=== PATIENT | female | born 1955 | race American Indian/Alaskan Native ===

== ENCOUNTER 2016-03-31 20:32 | Emergency (ER) | payer SELFPAY | END 2016-03-31 21:05 | disposition left against medical advice (07) | LOC: ED 20:32 | DX: R10.9 Unspecified abdominal pain (principal); Z53.21 Procedure and treatment not carried out due to patient leaving prior to being seen by health care provider ==

== ENCOUNTER 2016-04-01 08:37 | Emergency (ER) | payer SELFPAY ==
--- NOTE | 2016-04-01 21:38 | Emergency Department Report ---
HPI - General Chief Complaint: Abdominal Pain Time Seen by Provider: 04/01/16 21:12 - HPI HPI: This is a 61-year-old female who presents to the emergency department with a one-week history of generalized abdominal pain that she describes as a burning sensation. She denies any nausea, vomiting, problems with bowel or bladder, fever, back pain, dysuria, vaginal bleeding or discharge. She has a past medical history of hypertension. She does not currently have a primary care doctor. She has not taken anything for symptoms prior to presentation. Patient says she was here in December of this year and diagnosed with some type of colon infection, which I found to be colitis in her records, but she says that she was unable to afford follow-up and/or treatment and now this pain feels similar. No recent travel or sick contacts at home. ED Past Medical Hx - Past Medical History Hx Hypertension: Yes - Surgical History Hx Cholecystectomy: Yes Hx Appendectomy: Yes - Social History Smoking Status: Current Some Day Smoker Substance Use Type: Alcohol - Medications Home Medications: Home Medications Medication Instructions Recorded Confirmed Last Taken Type Flexeril 10 MG TAB 1 tab PO TID PRN 11/27/15 12/25/15 Unknown History Ventolin HFA 2 puff IH QID PRN 11/27/15 12/25/15 Unknown History amLODIPine 5 mg PO DAILY 11/27/15 12/25/15 Unknown History Ciprofloxacin HCl [Ciprofloxacin 500 mg PO Q12H #20 tab 12/25/15 Unknown Rx TAB] Promethazine [Phenergan TAB] 25 mg PO Q6HR PRN #14 tab 12/25/15 Unknown Rx Tramadol HCl 50 mg PO Q4H PRN #20 12/25/15 Unknown Rx metroNIDAZOLE [Flagyl] 500 mg PO Q8HR #30 tablet 12/25/15 Unknown Rx HYDROcodone/APAP 5-325 [[place] 1 each PO Q6HR PRN #12 tablet 04/02/16 Unknown Rx 5/325] ED Review of Systems ROS: Stated complaint: STOMACH ISSUES Other details as noted in HPI Comment: All other systems reviewed and negative Constitutional: denies: chills, fever Eyes: denies: eye pain, eye discharge, vision change ENT: denies: ear pain, throat pain Respiratory: denies: cough, shortness of breath, wheezing Cardiovascular: denies: chest pain, palpitations Gastrointestinal: abdominal pain. denies: nausea, vomiting Genitourinary: denies: urgency, dysuria, discharge Musculoskeletal: denies: back pain, joint swelling, arthralgia Skin: denies: rash, lesions Neurological: denies: headache, weakness, paresthesias Physical Exam - Physical Exam Vital Signs: Vital Signs 04/01/16 08:43 Temperature 97.9 F Pulse Rate 78 Respiratory 16 Rate Blood Pressure 158/100 O2 Sat by Pulse 99 Oximetry Physical Exam: GENERAL: The patient is well-developed well-nourished. HEENT: Normocephalic. Atraumatic. Extraocular motions are intact. Patient has moist mucous membranes. Pupils equal reactive to light bilaterally. NECK: Supple. Trachea is midline. CHEST/LUNGS: Clear to auscultation. There is no respiratory distress noted. HEART/CARDIOVASCULAR: Regular. There is no tachycardia. There is no gallop rub or murmur. ABDOMEN: Abdomen is soft. Generalized tenderness to palpation of the abdomen. No guarding or rebound tenderness. No peritoneal signs. Patient has normal bowel sounds. There is no abdominal distention. SKIN: There is no rash. There is no edema. There is no diaphoresis. NEURO: The patient is awake, alert, and oriented. The patient is cooperative. The patient has no focal neurologic deficits. The patient has normal speech and gait. MUSCULOSKELETAL: There is no tenderness or deformity. There is no limitation range of motion. There is no evidence of acute injury. ED Course Vital Signs 04/01/16 08:43 Temperature 97.9 F Pulse Rate 78 Respiratory 16 Rate Blood Pressure 158/100 O2 Sat by Pulse 99 Oximetry ED Medical Decision Making - Lab Data Result diagrams: 04/01/16 22:16 04/01/16 22:16 - Radiology Data Radiology results: report reviewed, image reviewed interpreted by me: Abdominal x-ray shows some moderate to large amounts of nonspecific bowel gas CT of the abdomen and pelvis with IV contrast is a normal examination and does not show any signs of urinary or intestinal obstruction any acute process. - Medical Decision Making 61-year-old female presents with one-week history of abdominal pain that is worse in the lower regions. She feels like it is consistent with her previous visit for colitis. Patient's vital signs stable throughout her ED course. Patient's labs unremarkable. Abdominal x-ray shows a large amount of nonspecific bowel gas. It appeared slightly abnormal on x-ray so a CT of the abdomen pelvis with IV contrast was done that came back as read by radiology as a normal examination. Patient was given a dose of Percocet and upon reevaluation she is feeling better. She'll be discharged home with a small amount of pain medication, and referrals for both primary care and gastroenterology. She will return to the ER with any worsening of her symptoms or any acute distress. - Differential Diagnosis colitis, gastroenteritis, diverticulitis, food poisoning Critical Care Time: No Critical care attestation.: If time is entered above; I have spent that time in minutes in the direct care of this critically ill patient, excluding procedure time. ED Disposition Clinical Impression: Abdominal pain Qualifiers: Abdominal location: generalized Qualified Code(s): R10.84 - Generalized abdominal pain Hypertension Qualifiers: Hypertension type: essential hypertension Qualified Code(s): I10 - Essential ( primary) hypertension Disposition: DISCHARGED TO HOME OR SELFCARE Is pt being admited?: No Does the pt Need Aspirin: No Condition: Stable Instructions: Abdominal Pain (ED), Hypertension (ED) Additional Instructions: Please follow-up with a primary care doctor in the next few days. I have also given you a referral for a local animal husbandry manager, Dr. West, to follow up regarding your abdominal discomfort. Return to the emergency department with any worsening of your symptoms or any acute distress. You've been prescribed a medication that is sedating. Therefore this medication cannot be mixed with alcohol, or taken prior to driving, working, or being responsible for children. Prescriptions: HYDROcodone/APAP 5-325 [[place] 5/325] 1 each PO Q6HR PRN #12 tablet PRN Reason: Pain Referrals: MADYSON FALCON MD [Primary Care Provider] - 3-5 Days KUNAL WEST MD [Staff Physician] - 3-5 Days [facility] [Outside] - 3-5 Days [facility] [Outside] - 3-5 Days [facility] [place] [Outside] - 3-5 Days Time of Disposition: 03:07
[2016-04-01 22:32] LABS: Basophils % (Auto) 0.9 % (0.0-1.8); Eosinophils % (Auto) 2.5 % (0.0-4.3); Hematocrit 39.3 % (30.3-42.9); Hemoglobin 12.9 gm/dl (10.1-14.3); Mean Corpuscular HGB Conc 33 % (30-34); Mean Corpuscular Hemoglobin 28 pg (28-32); Mean Corpuscular Volume 85 fl (79-97); Platelet Count 166 K/mm3 (140-440); Red Blood Count 4.61 M/mm3 (3.65-5.03); Red Cell Distribution Width 13.4 % (13.2-15.2)
[2016-04-01] MEDS ORDERED: PERCOCET 5/325 PO ONE (22:44)
[2016-04-01 22:54] LABS: Alanine Aminotransferase 28 units/L (7-56); Albumin 3.9 g/dL (3.9-5); Albumin/Globulin Ratio 1.1 %; Alkaline Phosphatase 79 units/L (35-129); Anion Gap 18 mmol/L; BUN/Creatinine Ratio 12.22; Bilirubin,Total < 0.2 mg/dL (0.1-1.2); Blood Urea Nitrogen 11 mg/dL (7-17); Carbon Dioxide 26 mmol/L (22-30); Chloride 101.6 mmol/L (98-107); Glucose 101 mg/dL (65-100); Lipase 43 units/L (13-60); Potassium 4.1 mmol/L (3.6-5.0); Sodium 141 mmol/L (137-145); Total Protein 7.3 g/dL (6.3-8.2)
[2016-04-02] MEDS ORDERED: NACL ONE (00:15)
[2016-04-02 00:31] LABS: Bilirubin,Urine NEG (Negative); Blood,Urine NEG (Negative); Ketones,Urine NEG (Negative); Leukocyte Esterase,Urine NEG (Negative); Mucus,Urine FEW /HPF; Nitrite,Urine NEG (Negative); Protein,Urine <15 mg/dL mg/dL (Negative); Urobilinogen,Urine < 2.0 mg/dL (<2.0)
--- NOTE | 2016-04-02 01:22 | Admit Criteria Form ---
Admission Criteria Documentation: ABDOMINAL PAIN: OBSERVATION CARE USE THIS FORM ONLY WHEN INPATIENT ADMISSION CRITERIA ARE NOT MET. (Place X for any and all applicable criteria): Placement for observation care is indicated for a patient with ANY ONE of the following(1)(2)(3)(4)(5))(6): []I. Suspected condition requiring continued monitoring (e.g., ectopic , appendicitis) [A] []II. Undiagnosed pain after evaluation and initial treatment with ANY ONE of the following: []a) Continued pain unrelieved by symptomatic treatment []b) Patient unable to maintain hydration status []c) Concerning finding on examination (e.g., increasing tenderness, focal abdominal finding) or diagnostic testing (e.g., air fluid level on x-ray) []III. A child whose situation includes ANY ONE of the following: []a) Clinical response to outpatient therapy uncertain []b) Outpatient supervision by parents or caregivers uncertain [X]IV. Other observation care needs. (Also use General Criteria: Observation Care). The original [email or web address] content created by [email or web address] has been revised. The portions of the content which have been revised are identified through the use of italic text, and [facility] has neither reviewed nor approved the modified material. All other unmodified content is copyright [facility] [email or web address]. Please see references footnoted in the original [facility] edition 2015 Admission Criteria Met: Pending
--- NOTE | 2016-04-02 02:57 | Cat Scan Report ---
FINAL REPORT EXAM: CT ABDOMEN PELVIS W CON HISTORY: abd pain TECHNIQUE: Spiral CT scanning of the abdomen and pelvis after the uneventful administration of IV contrast. Multiplanar reformations. 100 mL Omnipaque IV. PRIORS: 25 December 2015. FINDINGS: Abdomen: Visualized lung bases grossly unremarkable. Gallbladder surgically absent with biliary duct prominence probably postsurgical. Liver without significant abnormality. Spleen without significant abnormality. Pancreas without significant abnormality. Kidneys without significant abnormality. Adrenal glands without significant abnormality. Pelvis: Bowel grossly unremarkable, with mild diverticular change in the ascending colon. Appendix is not confidently identified. No significant free peritoneal fluid or apparent adenopathy. Abdominal aorta non-aneurysmal. Degenerative changes in thoracolumbar spine. IMPRESSION: 1. No acute findings.
[2016-04-02 05:24] VITALS: BP 151/87
--- NOTE | 2016-04-02 08:53 | XRay Report ---
ABDOMEN RADIOGRAPHS INDICATION: Abdominal pain. COMPARISON: 12/25/2015 CT. FINDINGS: Supine and upright abdominal radiographs demonstrate nonobstructive bowel gas pattern. Mild ascending colon stool. Stable cholecystectomy clips. No focal suspicious calcifications, pneumatosis or pneumoperitoneum. Clear visualized lung bases. Top normal heart size. Multilevel spinal degenerative changes/spurring. CONCLUSION: No acute abdominal radiographic abnormality, as described. Thank you for the opportunity to participate in this patient's care.
== END 2016-04-02 03:10 | disposition home or self-care (01) ==
LOC: ED 08:37
DX: R10.84 Generalized abdominal pain (principal); I10 Essential (primary) hypertension; Z72.0 Tobacco use
CPT/HCPCS: 36415; 74020; 74177; 80053; 81001; 83690; 85025; 99284; Q9967

== ENCOUNTER 2016-04-16 12:36 | Emergency (ER) | payer MEDICAID, OTHER ==
--- NOTE | 2016-04-16 16:00 | Emergency Department Report ---
Chief Complaint: Abdominal Pain Stated Complaint: ABD PAIN - HPI History of Present Illness: 61-year-old female presents with complaint of several weeks of right lower quadrant pain. Has been to the ED multiple times for the same complaint. Patient states that the pain is intermittent in her right lower quadrant. Patient has had a appendectomy in the past. Currently denies any nausea vomiting fever chills or dysuria. Patient specifically pointing to her right lower quadrant. Patient states that she has not followed up with GI because she cannot afford and has no insurance. Patient states he is passing stool and gas normally denies any rectal bleeding - ROS Review of Systems: Recurrent abdominal pain - Exam Vital Signs: Vital Signs 04/16/16 12:44 Temperature 98.2 F Pulse Rate 75 Respiratory 18 Rate Blood Pressure 164/104 O2 Sat by Pulse 99 Oximetry Physical Exam: Mild pain reproducible right lower quadrant MSE screening note: Focused history and physical exam performed. Due to findings the following was ordered: Screening Assessment/Plan/Differential Dx: Abdominal pain 1- This initial assessment/diagnostic orders/clinical plan/ treatment(s) is/are subject to change based on pt's health status, clinical progression and re- assessment by fellow clinical providers in the ED. Further treatment and workup at subsequent clinical provers discretion. Patient/guardians urged not to elope from ED as their condition may be serious if not clinically assessed and managed. 2-abdominal labs, x-ray 3-patient had abdominal CT with contrast which was unremarkable in ED about 2 weeks ago ED Disposition for MSE Condition: Stable Instructions: Abdominal Pain (ED)
[2016-04-16 16:24] LABS: Amylase 164 units/L (27-131); BUN/Creatinine Ratio 8.75; Blood Urea Nitrogen 7 mg/dL (7-17); Calcium 9.8 mg/dL (8.4-10.2); Carbon Dioxide 26 mmol/L (22-30); Chloride 102.3 mmol/L (98-107); Glucose 96 mg/dL (65-100); Potassium 4.2 mmol/L (3.6-5.0); Sodium 143 mmol/L (137-145)
[2016-04-16 16:25] LABS: Basophils % (Auto) 0.5 % (0.0-1.8); Eosinophils % (Auto) 2.1 % (0.0-4.3); Hematocrit 42.7 % (30.3-42.9); Mean Corpuscular HGB Conc 33 % (30-34); Mean Corpuscular Hemoglobin 28 pg (28-32); Mean Corpuscular Volume 86 fl (79-97); Platelet Count 180 K/mm3 (140-440); Red Cell Distribution Width 13.2 % (13.2-15.2); White Blood Count 7.1 K/mm3 (4.5-11.0)
[2016-04-16 16:26] LABS: Alanine Aminotransferase 26 units/L (7-56); Albumin 4.6 g/dL (3.9-5); Albumin/Globulin Ratio 1.6 %; Alkaline Phosphatase 87 units/L (35-129); Bilirubin,Total 0.2 mg/dL (0.1-1.2); Lipase 86 units/L (13-60); Total Protein 7.5 g/dL (6.3-8.2)
--- NOTE | 2016-04-16 16:28 | XRay Report ---
Abdominal series: History: Abdominal pain. Findings: No acute cardiopulmonary findings. No free intraperitoneal air. No bowel distention or wall thickening. Suspicious multiple small air-fluid levels. No radiopaque calculus or abnormal calcification. Impression: Nonspecific findings. Early incomplete small bowel obstruction or ileus.
[2016-04-16 16:39] LABS: Anion Gap 19 mmol/L
[2016-04-16 16:40] LABS: Bilirubin,Direct < 0.2 mg/dL (0-0.2)
--- NOTE | 2016-04-16 22:34 | Emergency Department Report ---
HPI - General Chief Complaint: Abdominal Pain Time Seen by Provider: 04/16/16 22:14 - HPI HPI: This is a 61-year-old Afro-[place] female who presents to the emergency department from home with complaint of right lower quadrant abdominal pain. Patient has a 3-4 month history of this abdominal pain but it was not always localized to the right lower quadrant. She was seen back in December 2015 and diagnosed with some nonspecific colitis but was unable to afford the antibiotics and medications prescribed at that time. I saw this patient 2 weeks ago for a similar set of complaints including some generalized burning sensation in her abdomen. Nothing was found and her workup at that time including a CT of the abdomen and pelvis and she was discharged home with pain medication and referrals for primary care and gastroenterology. The patient once again says that she was unable to afford to see any of these physicians. She denies any nausea, vomiting, fever, dysuria, diarrhea or constipation. She is otherwise not taken anything for symptoms prior to presentation. No recent travel or sick contacts at home. No known aggravating or alleviating factors. ED Past Medical Hx - Past Medical History Hx Hypertension: Yes - Surgical History Hx Cholecystectomy: Yes Hx Appendectomy: Yes - Social History Smoking Status: Current Some Day Smoker Substance Use Type: Alcohol - Medications Home Medications: Home Medications Medication Instructions Recorded Confirmed Last Taken Type Flexeril 10 MG TAB 1 tab PO TID PRN 11/27/15 12/25/15 Unknown History Ventolin HFA 2 puff IH QID PRN 11/27/15 12/25/15 Unknown History amLODIPine 5 mg PO DAILY 11/27/15 12/25/15 Unknown History Ciprofloxacin HCl [Ciprofloxacin 500 mg PO Q12H #20 tab 12/25/15 Unknown Rx TAB] Promethazine [Phenergan TAB] 25 mg PO Q6HR PRN #14 tab 12/25/15 Unknown Rx metroNIDAZOLE [Flagyl] 500 mg PO Q8HR #30 tablet 12/25/15 Unknown Rx HYDROcodone/APAP 5-325 [[place] 1 each PO Q6HR PRN #12 tablet 04/02/16 Unknown Rx 5/325] Sulfamethoxazole/Trimethoprim 1 each PO BID #10 tablet 04/17/16 Unknown Rx [Bactrim DS TAB] Tramadol HCl 50 mg PO Q4H PRN #16 04/17/16 Unknown Rx ED Review of Systems ROS: Stated complaint: ABD PAIN Other details as noted in HPI Comment: All other systems reviewed and negative Constitutional: denies: chills, fever Eyes: denies: eye pain, eye discharge, vision change ENT: denies: ear pain, throat pain Respiratory: denies: cough, shortness of breath, wheezing Cardiovascular: denies: chest pain, palpitations Gastrointestinal: abdominal pain. denies: nausea, vomiting Genitourinary: denies: urgency, dysuria, discharge Musculoskeletal: denies: back pain, joint swelling, arthralgia Skin: denies: rash, lesions Neurological: denies: headache, weakness, paresthesias Physical Exam - Physical Exam Vital Signs: Vital Signs 04/16/16 04/16/16 12:44 17:41 Temperature 98.2 F 98.3 F Pulse Rate 75 72 Respiratory 18 18 Rate Blood Pressure 164/104 165/109 O2 Sat by Pulse 99 100 Oximetry Physical Exam: GENERAL: The patient is well-developed well-nourished. HEENT: Normocephalic. Atraumatic. Extraocular motions are intact. Patient has moist mucous membranes. Pupils equal reactive to light bilaterally. NECK: Supple. Trachea is midline. CHEST/LUNGS: Clear to auscultation. There is no respiratory distress noted. HEART/CARDIOVASCULAR: Regular. There is no tachycardia. There is no gallop rub or murmur. ABDOMEN: Abdomen is soft. Patient has tenderness to palpation to the lower quadrants of the abdomen with the right side much greater than the left. No guarding rebound tenderness. No peritoneal signs. Patient has normal bowel sounds. There is no abdominal distention. SKIN: There is no rash. There is no diaphoresis. NEURO: The patient is awake, alert, and oriented. The patient is cooperative. The patient has no focal neurologic deficits. The patient has normal speech. MUSCULOSKELETAL: There is no tenderness or deformity. There is no limitation range of motion. There is no evidence of acute injury. ED Course Vital Signs 04/16/16 04/16/16 12:44 17:41 Temperature 98.2 F 98.3 F Pulse Rate 75 72 Respiratory 18 18 Rate Blood Pressure 164/104 165/109 O2 Sat by Pulse 99 100 Oximetry ED Medical Decision Making - Lab Data Result diagrams: 04/16/16 15:41 04/16/16 15:41 - Radiology Data Radiology results: report reviewed Chest x-ray does not show any acute process. The abdominal x-ray is read by radiology as concern for incomplete small bowel versus ileus CT of the abdomen and pelvis with IV contrast shows no evidence of intestinal or urinary tract obstruction. The appendix is normal. Mild diverticulosis of the distal colon. - Medical Decision Making 61-year-old female presents to the emergency department with a one-week exacerbation of abdominal pain. Patient's labs are mostly unremarkable except for a possible very mild urinary tract infection with 14 white blood cells in the urine. There is no significant leukocytosis. Normal LV labs including bilirubin, lipase and LFTs. On physical exam the patient has normal bowel sounds to auscultation. She is tender to palpation in the right lower quadrant. A abdominal x-ray was done that was read by radiology as concern for a partial small bowel obstruction versus ileus. For this reason a repeat CT of the abdomen and pelvis with IV contrast was done that shows some mild diverticulosis of the distal colon but otherwise no acute process. Patient was given some pain medication and has having some improvement. She will be started on some antibiotics for her mild urinary tract infection. She'll be given referrals for local clinics for primary care and will be given a referral for a before school babysitter. She will return to the ER with any worsening of her symptoms or any acute distress. - Differential Diagnosis bowel obstruction, diverticulitis, colitis, appendicitis Critical Care Time: No Critical care attestation.: If time is entered above; I have spent that time in minutes in the direct care of this critically ill patient, excluding procedure time. ED Disposition Clinical Impression: Abdominal pain Qualifiers: Abdominal location: right lower quadrant Qualified Code(s): R10.31 - Right lower quadrant pain UTI (urinary tract infection) Qualifiers: Urinary tract infection type: acute cystitis Hematuria presence: without hematuria Qualified Code(s): N30.00 - Acute cystitis without hematuria Diverticulosis Qualifiers: Diverticulosis site: diverticulosis of large intestine Diverticulosis bleeding : diverticulosis without bleeding Qualified Code(s): K57.30 - Diverticulosis of large intestine without perforation or abscess without bleeding Disposition: DISCHARGED TO HOME OR SELFCARE Is pt being admited?: No Does the pt Need Aspirin: No Condition: Stable Instructions: Abdominal Pain (ED), Diverticulosis (ED), Diverticulosis Diet (ED ), Urinary Tract Infection in Women (ED) Additional Instructions: These follow-up with a primary care doctor the next few days. You've been given referrals. Return to the emergency department with any worsening of your symptoms or any acute distress. You've been prescribed a medication that is sedating. Therefore this medication cannot be mixed with alcohol, or taken prior to driving, working, or being responsible for children. Prescriptions: Tramadol HCl 50 mg PO Q4H PRN #16 PRN Reason: Pain Sulfamethoxazole/Trimethoprim [Bactrim DS TAB] 1 each PO BID #10 tablet Referrals: PRIMARY MD EZEKIEL [Primary Care Provider] - 3-5 Days KENIA MANRIQUE MD [Staff Physician] - 3-5 Days [facility] [Outside] - 3-5 Days [facility] [Outside] - 3-5 Days [facility] [Outside] - 3-5 Days Time of Disposition: 02:53
[2016-04-17 00:06] VITALS: BP 146/80
--- NOTE | 2016-04-17 00:26 | Admit Criteria Form ---
Admission Criteria Documentation: ABDOMINAL PAIN Clinical Indications for Admission to Inpatient Care (Place 'X' for any and all applicable criteria): Admission is indicated for ANY ONE of the following(1)(2)(3)(4)(5): [ X]I. Inpatient admission required rather than observation care (Also use Abdominal Pain: Observation Care, as appropriate) because of ANY ONE of the following: [ ]a) Severe pain requiring acute inpatient management [ ]b) Identification of etiology/finding that requires inpatient care (eg, aortic dissection, free air) [ ]c) Absent bowel sounds with complete ileus(6) [ ]d) Suspected toxic megacolon [ ]e) Severe electrolyte abnormalities requiring inpatient care [ ]f) High fever or infection requiring inpatient admission as indicated by ANY ONE of following(7)(8): [ ] i) Appropriate outpatient or observational care antimicrobial treatment unavailable, not effective, or not feasible [ ] ii) Documented bacteremia [ ] iii) Temperature > 104.9 degrees F (oral) [ ] iv) T >103.1 F (oral) or < 96.8 F(rectal) that does not respond to all emergency treatment measures [ ]g) Signs of intestinal obstruction [B] [ ]h) Hemodynamic instability [ ]i) IV fluid to replace significant ongoing losses (greater than 3 L/m2 per day) (12)(13) [ ]j) Percutaneous or open drainage (eg, abscess, biliary tract ) procedures [ ]k) Parenteral nutrition regimen that must be implemented on inpatient basis [X ]l) Other condition,treatment or monitoring requiring inpatient admission. [ ]II. Peritoneal signs present [ ]III. Surgery needed that cannot be performed on an ambulatory basis. [ ]IV. Evaluation requires patient to not eat or drink for extended period ( eg, more than 24 hours). [ ]V. Contraindications and/or Inappropriate clinical situations for Observational Care in patients with abdominal pain, when ANY ONE of the following is required: [ ]a) Thorough evaluation is required to prevent catastrophic events due to delays in diagnosing (e.g.Mesenteric ischemia) 1,3 [ ]b) Patient with severe pathology or with chronic symptoms unlikely to improve in the ED stay (3) [ ]. General contraindications and/or Inappropriate clinical situations for Observational Care in patients with abdominal pain, when ANY ONE of the following is required: [ ]a) Prediction of prolongation of LOS based on ANY ONE of the following may be considered as a contraindication for observational care 2, 3, 4, 5, 6, 7, 8, 9, 10, 11 [ ]i) Age > 65 yrs. [ ]ii) Patient arriving by ambulance [ ]iii) Patient with high acuity [ ]iv) Patient requiring vital sign monitoring [ ]v) Patient on IV medication [ ]b) Systolic blood pressures 180mmHg 3,12 [ ]c) Patient with altered mental status including delirium and other alteration of consciousness, (3) [ ]d) Patient whose discharge disposition will be to a usp home or rehabilitation home should not be managed in Emergency Department Observation Unit. CMS rule requires 3 days hospital stay before such placement.3,13 [ ]e) Patient with failure to thrive due to broad array of etiologies 3,16,17 [ ]f) Inability to ambulate 3,14 Extended stay beyond goal length of stay may be needed for(2)(3): [ ]a) Persistent abdominal pain with suspected intra-abdominal process [ ]b) Diagnosed condition requiring continued stay (e.g., pancreatitis, complicated diverticulitis) [ ]c) Surgery (e.g., colectomy) The original [facility] content created by [employer] has been revised. The portions of the content which have been revised are identified through the use of italic text or in bold, and [facility] has neither reviewed nor approved the modified material.All other unmodified content is copyright [facility]. Please see references footnoted in the original [facility] edition 2016
[2016-04-17] MEDS ORDERED: NACL ONE (00:39)
[2016-04-17 00:58] LABS: Mucus,Urine 1+ /HPF
--- NOTE | 2016-04-17 01:25 | Cat Scan Report ---
FINAL REPORT PROCEDURE: CT ABDOMEN PELVIS W CON TECHNIQUE: Computerized axial tomography of the abdomen and pelvis was performed after the IV injection of iodinated nonionic contrast. HISTORY: Abd pain COMPARISON: 04/02/2016 FINDINGS: Visualized lower thorax: Small 6 millimeter calcified nodule density in lateral left lower lung, benign granuloma is suspected.. Liver: Normal size and attenuation. Spleen: Normal size and attenuation. Gallbladder and biliary system: The gallbladder is absent. There is slight prominence of the common bile duct. No stones are noted.. Pancreas: Normal. Adrenals: Normal. Kidneys: Normal. GI tract: The stomach is normal. The small bowel has a normal caliber. No obstruction, ileus or enteritis. The cecum, appendix region and colon are normal. Mild diverticular change in the distal colon.. Lymph nodes and mesentery: Normal. Vasculature: Mild atherosclerosis of the aorta and branching vessels. Bladder: Normal. Reproductive organs: Normal. Peritoneum: No free fluid. Musculoskeletal structures: There is degenerative change of the thoracic and lumbar spine.. Other: None. IMPRESSION: There is no evidence of intestinal or urinary tract obstruction. The appendix is normal. Mild diverticulosis of the distal colon. The cardiac cholecystectomy..
[2016-04-17 01:31] LABS: Bilirubin,Urine Negative (Negative); Blood,Urine Moderate (Negative); Ketones,Urine Negative (Negative); Protein,Urine <15 mg/dL mg/dL (Negative)
[2016-04-17 01:32] LABS: Leukocyte Esterase,Urine Negative (Negative); Nitrite,Urine Negative (Negative); Urobilinogen,Urine 0.2 mg/dL (<2.0)
[2016-04-17] MEDS ORDERED: MORPHINE IV ONE (01:49)
== END 2016-04-17 03:30 | disposition home or self-care (01) ==
LOC: ED 12:36
DX: K57.30 Diverticulosis of large intestine without perforation or abscess without bleeding (principal); N30.00 Acute cystitis without hematuria; R10.31 Right lower quadrant pain; I10 Essential (primary) hypertension; F17.200 Nicotine dependence, unspecified, uncomplicated; Z90.49 Acquired absence of other specified parts of digestive tract
CPT/HCPCS: 36415; 74022; 74177; 80048; 80074; 81001; 82140; 82150; 82550; 82805; 83690; 85025; 87086; 96374; 99284; J2270; Q9967

== ENCOUNTER 2017-06-11 13:21 | Emergency (ER) | payer SELFPAY ==
[2017-06-11] MEDS ORDERED: ASPIRIN PO ONE (13:35)
[2017-06-11 14:19] LABS: Basophils # (Auto) 0.1 K/mm3 (0.0-0.1); Eosinophils # (Auto) 0.1 K/mm3 (0.0-0.4); Eosinophils % (Auto) 0.7 % (0.0-4.3); Hematocrit 46.1 % (30.3-42.9); Hemoglobin 15.4 gm/dl (10.1-14.3); Lymphocytes # (Auto) 2.8 K/mm3 (1.2-5.4); Lymphocytes % (Auto) 36.3 % (13.4-35.0); Mean Corpuscular HGB Conc 33 % (30-34); Mean Corpuscular Hemoglobin 28 pg (28-32); Mean Corpuscular Volume 84 fl (79-97); Monocytes % (Auto) 12.5 % (0.0-7.3); Platelet Count 182 K/mm3 (140-440); Red Blood Count 5.47 M/mm3 (3.65-5.03); Red Cell Distribution Width 13.5 % (13.2-15.2)
[2017-06-11 14:31] LABS: BUN/Creatinine Ratio 9; Blood Urea Nitrogen 8 mg/dL (7-17); Calcium 10.1 mg/dL (8.4-10.2); Hemolysis Index 28
[2017-06-11] MEDS ORDERED: LIDOCAINE VISCOUS 2% PO ONE (22:28)
[2017-06-11] MEDS ORDERED: ALUM-MAG HYDROX-SIMETH 200-200-20MG/5ML PO ONE (22:28)
--- NOTE | 2017-06-11 22:53 | Emergency Department Report ---
ED Chest Pain HPI - General Chief Complaint: Chest Pain Stated Complaint: CHEST PAIN Time Seen by Provider: 06/11/17 22:13 Source: patient Mode of arrival: Ambulatory Limitations: No Limitations - History of Present Illness Initial Comments: Progressive onset, intermittent, substernal chest pain that radiates around to the back. Patient feels a tightening in her chest that lasts for a couple minutes and then it resolves. This is yet been going on for the past couple years. Patient has had a EGD and colonoscopy to try to figure out what's going on without any answers. She normally just gets pain medication and is sent home. Patient does not have a family doctor at this time. She says that the pain worsens with food, exertion, position, and deep breaths. She has never had any cardiac problems. Denies drug use. Severity scale (0 -10): 8 - Related Data Home Medications Medication Instructions Recorded Confirmed Last Taken Flexeril 10 MG TAB 1 tab PO TID PRN 11/27/15 12/25/15 Unknown Ventolin HFA 2 puff IH QID PRN 11/27/15 12/25/15 Unknown amLODIPine 5 mg PO DAILY 11/27/15 12/25/15 Unknown Previous Rx's Medication Instructions Recorded Last Taken Type Ciprofloxacin HCl [Ciprofloxacin 500 mg PO Q12H #20 tab 12/25/15 Unknown Rx TAB] Promethazine [Phenergan TAB] 25 mg PO Q6HR PRN #14 tab 12/25/15 Unknown Rx metroNIDAZOLE [Flagyl] 500 mg PO Q8HR #30 tablet 12/25/15 Unknown Rx HYDROcodone/APAP 5-325 [[place] 1 each PO Q6HR PRN #12 tablet 04/02/16 Unknown Rx 5/325] Sulfamethoxazole/Trimethoprim 1 each PO BID #10 tablet 04/17/16 Unknown Rx [Bactrim DS TAB] Tramadol HCl 50 mg PO Q4H PRN #16 04/17/16 Unknown Rx amLODIPine [Norvasc] 5 mg PO DAILY #30 tab 04/17/16 Unknown Rx Famotidine [Pepcid] 20 mg PO DAILY #20 tablet 06/12/17 Unknown Rx Sucralfate [Carafate] 1 gm PO ACHS PRN #200 ml 06/12/17 Unknown Rx traMADol [Ultram 50 MG tab] 50 mg PO Q6HR PRN #10 tablet 06/12/17 Unknown Rx Allergies Allergy/AdvReac Type Severity Reaction Status Date / Time No Known Allergies Allergy Verified 12/25/15 05:58 Heart Score - HEART Score History: Slightly suspicious EKG: Normal Age: > 65 Risk factors: 1-2 risk factors Troponin: < normal limit HEART Score: 3 ED Review of Systems ROS: Stated complaint: CHEST PAIN Other details as noted in HPI Comment: All other systems reviewed and negative Cardiovascular: chest pain. denies: palpitations, dyspnea on exertion, orthopnea, syncope, paroxysmal nocturnal dyspnea Gastrointestinal: denies: abdominal pain, nausea, vomiting, diarrhea ED Past Medical Hx - Past Medical History Previous Medical History?: Yes Hx Hypertension: Yes - Surgical History Past Surgical History?: Yes Hx Cholecystectomy: Yes Hx Appendectomy: Yes - Family History Family history: CAD/UT - Social History Smoking Status: Current Every Day Smoker Substance Use Type: Alcohol, Prescribed - Medications Home Medications: Home Medications Medication Instructions Recorded Confirmed Last Taken Type Flexeril 10 MG TAB 1 tab PO TID PRN 11/27/15 12/25/15 Unknown History Ventolin HFA 2 puff IH QID PRN 11/27/15 12/25/15 Unknown History amLODIPine 5 mg PO DAILY 11/27/15 12/25/15 Unknown History Ciprofloxacin HCl [Ciprofloxacin 500 mg PO Q12H #20 tab 12/25/15 Unknown Rx TAB] Promethazine [Phenergan TAB] 25 mg PO Q6HR PRN #14 tab 12/25/15 Unknown Rx metroNIDAZOLE [Flagyl] 500 mg PO Q8HR #30 tablet 12/25/15 Unknown Rx HYDROcodone/APAP 5-325 [[place] 1 each PO Q6HR PRN #12 tablet 04/02/16 Unknown Rx 5/325] Sulfamethoxazole/Trimethoprim 1 each PO BID #10 tablet 04/17/16 Unknown Rx [Bactrim DS TAB] Tramadol HCl 50 mg PO Q4H PRN #16 04/17/16 Unknown Rx amLODIPine [Norvasc] 5 mg PO DAILY #30 tab 04/17/16 Unknown Rx Famotidine [Pepcid] 20 mg PO DAILY #20 tablet 06/12/17 Unknown Rx Sucralfate [Carafate] 1 gm PO ACHS PRN #200 ml 06/12/17 Unknown Rx traMADol [Ultram 50 MG tab] 50 mg PO Q6HR PRN #10 tablet 06/12/17 Unknown Rx ED Physical Exam - General Limitations: No Limitations General appearance: alert, in no apparent distress - Head Head exam: Present: atraumatic, normocephalic - Eye Eye exam: Present: normal appearance - ENT ENT exam: Present: mucous membranes moist - Neck Neck exam: Present: normal inspection - Respiratory Respiratory exam: Present: normal lung sounds bilaterally. Absent: respiratory distress - Cardiovascular Cardiovascular Exam: Present: regular rate, normal rhythm. Absent: systolic murmur, diastolic murmur, rubs, gallop - GI/Abdominal GI/Abdominal exam: Present: soft, tenderness (epigastric), normal bowel sounds - Extremities Exam Extremities exam: Present: normal inspection - Back Exam Back exam: Present: normal inspection - Neurological Exam Neurological exam: Present: alert, oriented X3 - Psychiatric Psychiatric exam: Present: normal affect, normal mood - Skin Skin exam: Present: warm, dry, intact, normal color. Absent: rash ED Course Vital Signs 06/11/17 06/11/17 06/11/17 13:32 22:10 22:15 Temperature 99.8 F H Pulse Rate 89 80 83 Respiratory 18 22 Rate Blood Pressure 160/107 188/102 O2 Sat by Pulse 97 88 98 Oximetry 06/11/17 06/11/17 22:21 22:25 Temperature 97.2 F L Pulse Rate 108 H 97 H Respiratory 25 H 30 H Rate Blood Pressure 188/102 188/102 O2 Sat by Pulse 96 96 Oximetry ED Medical Decision Making - Lab Data Result diagrams: 06/11/17 13:54 06/11/17 13:54 Lab Results 06/11/17 06/11/17 06/11/17 Range/Units 13:54 13:54 16:19 WBC 7.7 (4.5-11.0) K/mm3 RBC 5.47 H (3.65-5.03) M/mm3 Hgb 15.4 H (10.1-14.3) gm/dl Hct 46.1 H (30.3-42.9) % MCV 84 (79-97) fl MCH 28 (28-32) pg MCHC 33 (30-34) % RDW 13.5 (13.2-15.2) % Plt Count 182 (140-440) K/mm3 Lymph % (Auto) 36.3 H (13.4-35.0) % Mc[place]osh % (Auto) 12.5 H (0.0-7.3) % Eos % (Auto) 0.7 (0.0-4.3) % Baso % (Auto) 1.0 (0.0-1.8) % Lymph # 2.8 (1.2-5.4) K/mm3 Mc[place]osh # 1.0 H (0.0-0.8) K/mm3 Eos # 0.1 (0.0-0.4) K/mm3 Baso # 0.1 (0.0-0.1) K/mm3 Seg Neutrophils % 49.5 (40.0-70.0) % Seg Neutrophils # 3.8 (1.8-7.7) K/mm3 Sodium 139 (137-145) mmol/L Potassium 4.1 (3.6-5.0) mmol/L Chloride 98.3 (98-107) mmol/L Carbon Dioxide 26 (22-30) mmol/L Anion Gap 19 mmol/L BUN 8 (7-17) mg/dL Creatinine 0.9 (0.7-1.2) mg/dL Estimated GFR > 60 ml/min BUN/Creatinine Ratio 9 % Glucose 117 H (65-100) mg/dL Calcium 10.1 (8.4-10.2) mg/dL Troponin T < 0.010 < 0.010 (0.00-0.029) ng/mL 06/11/17 Range/Units 19:25 WBC (4.5-11.0) K/mm3 RBC (3.65-5.03) M/mm3 Hgb (10.1-14.3) gm/dl Hct (30.3-42.9) % MCV (79-97) fl MCH (28-32) pg MCHC (30-34) % RDW (13.2-15.2) % Plt Count (140-440) K/mm3 Lymph % (Auto) (13.4-35.0) % [place] % (Auto) (0.0-7.3) % Eos % (Auto) (0.0-4.3) % Baso % (Auto) (0.0-1.8) % Lymph # (1.2-5.4) K/mm3 [place]osh # (0.0-0.8) K/mm3 Eos # (0.0-0.4) K/mm3 Baso # (0.0-0.1) K/mm3 Seg Neutrophils % (40.0-70.0) % Seg Neutrophils # (1.8-7.7) K/mm3 Sodium (137-145) mmol/L Potassium (3.6-5.0) mmol/L Chloride (98-107) mmol/L Carbon Dioxide (22-30) mmol/L Anion Gap mmol/L BUN (7-17) mg/dL Creatinine (0.7-1.2) mg/dL Estimated GFR ml/min BUN/Creatinine Ratio % Glucose (65-100) mg/dL Calcium (8.4-10.2) mg/dL Troponin T < 0.010 (0.00-0.029) ng/mL - EKG Data -: EKG Interpreted by Me EKG shows normal: sinus rhythm, axis, intervals, QRS complexes, ST-T waves Rate: normal - Medical Decision Making 62-year-old female past medical history of hypertension that presents with acute on chronic chest pain. This going on for the past couple years. The patient's lab work was unremarkable, including delta troponin. EKG was nonischemic. Chest x-ray showed no acute process. Patient was given a GI cocktail with improvement of symptoms. I'm concerned for acid reflux versus esophageal motility disorder. Patient will be started on Pepcid and Carafate. I'll give the patient a short prescription of tramadol to use until she can follow up with the [facility] for reevaluation. I have a low suspicion for ACS given chronic nature of symptoms, low heart score, and negative troponin. Critical care attestation.: If time is entered above; I have spent that time in minutes in the direct care of this critically ill patient, excluding procedure time. ED Disposition Clinical Impression: Abdominal pain Disposition: DC-01 TO HOME OR SELFCARE Is pt being admited?: No Condition: Stable Instructions: Diet for Ulcers and Gastritis (ED), Esophageal Spasm (ED) Additional Instructions: Please follow up with the [facility] to be further evaluated for esophageal spasms. Prescriptions: Famotidine [Pepcid] 20 mg PO DAILY #20 tablet Sucralfate [Carafate] 1 gm PO ACHS PRN #200 ml PRN Reason: Indigestion traMADol [Ultram 50 MG tab] 50 mg PO Q6HR PRN #10 tablet PRN Reason: Pain Referrals: PRIMARY CARE,MD [Primary Care Provider] - 3-5 Days [facility] [Outside] - 3-5 Days
[2017-06-12] MEDS ORDERED: PEPCID PO ONE (00:23)
[2017-06-12] MEDS ORDERED: ULTRAM PO ONE (00:23)
[2017-06-12 00:42] VITALS: BP 149/89
--- NOTE | 2017-06-12 07:15 | XRay Report ---
FINAL REPORT EXAM: XR CHEST ROUTINE 2V HISTORY: chest pain TECHNIQUE: PA and lateral chest radiographs PRIORS: None. FINDINGS: No mediastinal shift. Cardiac silhouette is not enlarged. No pneumothorax, effusion, or focal pulmonary opacity. No acute skeletal finding. IMPRESSION: No focal pulmonary opacity.
== END 2017-06-12 00:49 | disposition home or self-care (01) ==
LOC: ED 13:21
DX: R10.13 Epigastric pain (principal); I10 Essential (primary) hypertension; F17.200 Nicotine dependence, unspecified, uncomplicated; Z90.49 Acquired absence of other specified parts of digestive tract
CPT/HCPCS: 36415; 71046; 80048; 84484; 85025; 93005; 93010; 99284

== ENCOUNTER 2018-06-07 11:00 | Emergency (ER) | payer BC ==
--- NOTE | 2018-06-07 11:32 | Emergency Department Report ---
Blank Doc - Documentation Documentation: This is a 63-year-old female that presents with upper back pain. Denies any i njuries or any other complaints. This initial assessment diagnostic orders/clinical plan/treatment(s) is/are subject to change based on patient's health status, clinical progression and re-assessment by fellow clinical providers in the ED. Further treatment and workup at subsequent clinical providers discretion. Patient/guardians urged not to elope from ED s their condition may be serious if not clinically assessed and managed. Initial orders include: 1-patient sent to [facility] for further evaluation and treatment.
[2018-06-07] MEDS ORDERED: TORADOL IM ONE (13:12)
--- NOTE | 2018-06-07 14:29 | Emergency Department Report ---
ED Back Pain/Injury HPI - General Chief Complaint: Back Pain/Injury Stated Complaint: BACK PAIN Time Seen by Provider: 06/07/18 11:31 Source: patient Limitations: No Limitations - History of Present Illness Initial Comments: This is a 63-year-old female who presents to the ED complaining of right sided upper back pain for the past 2 months. Patient states that pain is worsening daily. Patient states that she woke up this morning and felt like her that gave out. Patient states that pain is worsened with laying down on her back. Patient denies any trauma injuries or falls she describes pain as a primary sensation in her upper back MD Complaint: back pain Similar Symptoms Previously: No Place: home Radiation: none Severity: moderate Severity scale (0 -10): 7 Quality: sharp, aching, tingling Consistency: constant Improves With: immobilization Worsens With: movement, other (laying down on back) Context: unknown Associated Symptoms: denies: confusion, chest pain, numbness, difficulty walking, cough, incontinence, headaches, abdominal pain, seizure - Related Data Home Medications Medication Instructions Recorded Confirmed Last Taken Ventolin HFA 2 puff IH QID PRN 11/27/15 12/25/15 Unknown amLODIPine 5 mg PO DAILY 11/27/15 12/25/15 Unknown Previous Rx's Medication Instructions Recorded Last Taken Type Ciprofloxacin HCl [Ciprofloxacin 500 mg PO Q12H #20 tab 12/25/15 Unknown Rx TAB] Promethazine [Phenergan TAB] 25 mg PO Q6HR PRN #14 tab 12/25/15 Unknown Rx metroNIDAZOLE [Flagyl] 500 mg PO Q8HR #30 tablet 12/25/15 Unknown Rx HYDROcodone/APAP 5-325 [[place] 1 each PO Q6HR PRN #12 tablet 04/02/16 Unknown Rx 5/325] Sulfamethoxazole/Trimethoprim 1 each PO BID #10 tablet 04/17/16 Unknown Rx [Bactrim DS TAB] Tramadol HCl 50 mg PO Q4H PRN #16 04/17/16 Unknown Rx amLODIPine [Norvasc] 5 mg PO DAILY #30 tab 04/17/16 Unknown Rx Famotidine [Pepcid] 20 mg PO DAILY #20 tablet 06/12/17 Unknown Rx Sucralfate [Carafate] 1 gm PO ACHS PRN #200 ml 06/12/17 Unknown Rx traMADol [Ultram 50 MG tab] 50 mg PO Q6HR PRN #10 tablet 06/12/17 Unknown Rx Cyclobenzaprine [Flexeril] 10 mg PO QHS PRN #20 tablet 06/07/18 Unknown Rx Ibuprofen [Motrin] 800 mg PO Q8HR #40 tablet 06/07/18 Unknown Rx Allergies Allergy/AdvReac Type Severity Reaction Status Date / Time No Known Allergies Allergy Verified 12/25/15 05:58 ED Review of Systems ROS: Stated complaint: BACK PAIN Other details as noted in HPI Comment: All other systems reviewed and negative ED Past Medical Hx - Past Medical History Previous Medical History?: Yes Hx Hypertension: Yes - Surgical History Past Surgical History?: Yes Hx Cholecystectomy: Yes Hx Appendectomy: Yes - Social History Smoking Status: Current Every Day Smoker Substance Use Type: None - Medications Home Medications: Home Medications Medication Instructions Recorded Confirmed Last Taken Type Ventolin HFA 2 puff IH QID PRN 11/27/15 12/25/15 Unknown History amLODIPine 5 mg PO DAILY 11/27/15 12/25/15 Unknown History Ciprofloxacin HCl [Ciprofloxacin 500 mg PO Q12H #20 tab 12/25/15 Unknown Rx TAB] Promethazine [Phenergan TAB] 25 mg PO Q6HR PRN #14 tab 12/25/15 Unknown Rx metroNIDAZOLE [Flagyl] 500 mg PO Q8HR #30 tablet 12/25/15 Unknown Rx HYDROcodone/APAP 5-325 [[place] 1 each PO Q6HR PRN #12 tablet 04/02/16 Unknown Rx 5/325] Sulfamethoxazole/Trimethoprim 1 each PO BID #10 tablet 04/17/16 Unknown Rx [Bactrim DS TAB] Tramadol HCl 50 mg PO Q4H PRN #16 04/17/16 Unknown Rx amLODIPine [Norvasc] 5 mg PO DAILY #30 tab 04/17/16 Unknown Rx Famotidine [Pepcid] 20 mg PO DAILY #20 tablet 06/12/17 Unknown Rx Sucralfate [Carafate] 1 gm PO ACHS PRN #200 ml 06/12/17 Unknown Rx traMADol [Ultram 50 MG tab] 50 mg PO Q6HR PRN #10 tablet 06/12/17 Unknown Rx Cyclobenzaprine [Flexeril] 10 mg PO QHS PRN #20 tablet 06/07/18 Unknown Rx Ibuprofen [Motrin] 800 mg PO Q8HR #40 tablet 06/07/18 Unknown Rx ED Physical Exam - General Limitations: No Limitations General appearance: alert, in no apparent distress - Head Head exam: Present: atraumatic, normocephalic - Eye Eye exam: Present: normal appearance - ENT ENT exam: Present: mucous membranes moist - Neck Neck exam: Present: normal inspection - Respiratory Respiratory exam: Present: normal lung sounds bilaterally. Absent: respiratory distress - Cardiovascular Cardiovascular Exam: Present: regular rate, normal rhythm. Absent: systolic murmur, diastolic murmur, rubs, gallop - GI/Abdominal GI/Abdominal exam: Present: soft, normal bowel sounds - Extremities Exam Extremities exam: Present: normal inspection, full ROM. Absent: tenderness - Back Exam Back exam: Present: normal inspection, full ROM, tenderness (to palpation of the rhomboid/trapezius muscles), muscle spasm. Absent: CVA tenderness (R), CVA tenderness (L), rash noted - Neurological Exam Neurological exam: Present: alert, oriented X3, CN II-XII intact, normal gait (agitated with pain) - Psychiatric Psychiatric exam: Present: normal affect, normal mood - Skin Skin exam: Present: warm, dry, intact, normal color. Absent: rash ED Course Vital Signs 06/07/18 06/07/18 11:31 13:14 Temperature 98.7 F Pulse Rate 60 Respiratory 18 18 Rate Blood Pressure 177/75 O2 Sat by Pulse 96 Oximetry ED Medical Decision Making - Radiology Data Radiology results: report reviewed, image reviewed CT THORACIC SPINE WITHOUT CONTRAST History: Back pain. Technique: Helical CT with sagittal and coronal reformatted images. Findings: Bone mineralization is borderline. There is no evidence for compression deformity, subluxation or bone lesion. Mild multilevel degenerative disc disease is noted in the mid and lower thoracic spine. No erosive endplate changes. The posterior elements are in appropriate relationship. Although intraspinal detail is limited on noncontrast CT, no large bulging disc or epidural process is identified. The paraspinal soft tissues are unremarkable. Impression: Mild to moderate multilevel thoracic spondylosis. No acute process identified. Transcribed By: TTR Dictated By: MAX ALEGRE JR, MD Electronically Authenticated By: MAX ALEGRE JR, MD Signed Date/Time: 06/07/18 1440 - Medical Decision Making 63-year-old female presents with upper back pain CT scan of the thoracic spine shows disc degeneration disease. Vital signs are normal patient is in acute distress Discussed findings with patient. Patient presents along with Flexeril and Motrin for pain. Discussed with the lifting or stress activities for the next couple of days. Discussed heat therapy as needed. Vital signs patient is acute distress. Critical care attestation.: If time is entered above; I have spent that time in minutes in the direct care of this critically ill patient, excluding procedure time. ED Disposition Clinical Impression: Disc degeneration, Back pain, thoracic Disposition: DC-01 TO HOME OR SELFCARE Is pt being admited?: No Does the pt Need Aspirin: No Condition: Stable Instructions: Back Pain (ED), Thoracic Disc Herniation (ED) Additional Instructions: Make sure to follow up with the primary care physician as discussed. Take all your medications as you've been prescribed. If you have any worsening symptoms or develop new symptoms please return to ED immediately. Prescriptions: Cyclobenzaprine [Flexeril] 10 mg PO QHS PRN #20 tablet PRN Reason: Muscle Spasm Ibuprofen [Motrin] 800 mg PO Q8HR #40 tablet Referrals: [facility] MD JUSTIN [Primary Care Provider] - 3-5 Days AMARA SY MD [Staff Physician] - 3-5 Days Forms: Work/School Release Form Time of Disposition: 15:30
--- NOTE | 2018-06-07 14:44 | Cat Scan Report ---
CT THORACIC SPINE WITHOUT CONTRAST History: Back pain. Technique: Helical CT with sagittal and coronal reformatted images. Findings: Bone mineralization is borderline. There is no evidence for compression deformity, subluxation or bone lesion. Mild multilevel degenerative disc disease is noted in the mid and lower thoracic spine. No erosive endplate changes. The posterior elements are in appropriate relationship. Although intraspinal detail is limited on noncontrast CT, no large bulging disc or epidural process is identified. The paraspinal soft tissues are unremarkable. Impression: Mild to moderate multilevel thoracic spondylosis. No acute process identified.
[2018-06-07 15:43] VITALS: BP 160/85
== END 2018-06-07 15:43 | disposition home or self-care (01) ==
LOC: ED 11:00
DX: M51.34 Other intervertebral disc degeneration, thoracic region (principal); I10 Essential (primary) hypertension; F17.200 Nicotine dependence, unspecified, uncomplicated; Z90.49 Acquired absence of other specified parts of digestive tract; Z79.899 Other long term (current) drug therapy
CPT/HCPCS: 72128; 96372; 99283; J1885

== ENCOUNTER 2018-08-20 17:24 | Emergency (ER) | payer BC, OTHER ==
--- NOTE | 2018-08-20 17:52 | Event Note ---
ED Screening Note ED Screening Note: saw here pcp for sore nose 3 d ago started her on bactrum now has rlq pain no n/v/d hx choley; appy vss no fever This initial assessment/diagnostic orders/clinical plan/treatment(s) is/are subject to change based on patients health status, clinical progression and re- assessment by fellow clinical providers in the ED. Further treatment and workup at subsequent clinical providers discretion. Patient/guardian urged not to elope from the ED as their condition may be serious if not clinically assessed and managed. Initial orders include: labs ua
[2018-08-20 18:19] LABS: Basophils # (Auto) 0.1 K/mm3 (0.0-0.1); Basophils % (Auto) 0.5 % (0.0-1.8); Eosinophils # (Auto) 0.1 K/mm3 (0.0-0.4); Eosinophils % (Auto) 0.6 % (0.0-4.3); Hematocrit 39.3 % (30.3-42.9); Lymphocytes # (Auto) 2.4 K/mm3 (1.2-5.4); Lymphocytes % (Auto) 24.3 % (13.4-35.0); Mean Corpuscular HGB Conc 33 % (30-34); Mean Corpuscular Volume 86 fl (79-97); Monocytes # (Auto) 0.9 K/mm3 (0.0-0.8); Platelet Count 163 K/mm3 (140-440); Red Blood Count 4.55 M/mm3 (3.65-5.03); Red Cell Distribution Width 13.3 % (13.2-15.2)
[2018-08-20 18:45] LABS: Alanine Aminotransferase 22 units/L (7-56); Albumin 4.2 g/dL (3.9-5); BUN/Creatinine Ratio 12; Blood Urea Nitrogen 13 mg/dL (7-17); Calcium 9.3 mg/dL (8.4-10.2); Hemolysis Index 6
[2018-08-20 18:47] LABS: Bilirubin,Direct < 0.2 mg/dL (0-0.2)
--- NOTE | 2018-08-20 20:30 | XRay Report ---
PROCEDURE: XR ABDOMEN 1V AP TECHNIQUE: Abdominal radiograph, single view. HISTORY: abd pain COMPARISONS: None . FINDINGS: Bowel gas pattern: Nonobstructive . Masses or calcifications: None . Bony structures: No significant abnormality . Other: None . IMPRESSION: No acute abnormality. This document is electronically signed by Chan Moran MD., Aug 20 2018 09:28:47 PM ET
[2018-08-20] MEDS ORDERED: ZOFRAN IV ONE (23:50)
[2018-08-20] MEDS ORDERED: SUBLIMAZE IV ONE (23:50)
--- NOTE | 2018-08-20 23:56 | Emergency Department Report ---
HPI - General Chief Complaint: Abdominal Pain Time Seen by Provider: 08/20/18 17:51 - HPI HPI: Room 24 The patient is a 63-year-old female presented with a chief complaint of abdominal pain. The patient states yesterday morning shortly after taking anti biotic prescribed to her for a nasal infection she developed right lower quadrant abdominal pain. Patient describes the pain as a "hurt" he states that his been constant. Patient denies dysuria or hematuria. Patient denies nausea or vomiting. Patient denies history of fever. The patient gives her pain a score of 10/10. Location: Right lower quadrant Duration: Constant since yesterday morning Quality: "hurt" Severity: 1010 Modifying factors: [see above] Context: [see above] Mode of transportation: [not driving] ED Past Medical Hx - Past Medical History Previous Medical History?: Yes Hx Hypertension: Yes - Surgical History Past Surgical History?: Yes Hx Cholecystectomy: Yes Hx Appendectomy: Yes - Family History Family history: no significant - Social History Smoking Status: Current Some Day Smoker Substance Use Type: Alcohol (occasional) - Medications Home Medications: Home Medications Medication Instructions Recorded Confirmed Last Taken Type Ventolin HFA 2 puff IH QID PRN 11/27/15 12/25/15 Unknown History amLODIPine 5 mg PO DAILY 11/27/15 12/25/15 Unknown History Ciprofloxacin HCl [Ciprofloxacin 500 mg PO Q12H #20 tab 12/25/15 Unknown Rx TAB] Promethazine [Phenergan TAB] 25 mg PO Q6HR PRN #14 tab 12/25/15 Unknown Rx metroNIDAZOLE [Flagyl] 500 mg PO Q8HR #30 tablet 12/25/15 Unknown Rx HYDROcodone/APAP 5-325 [[place] 1 each PO Q6HR PRN #12 tablet 04/02/16 Unknown Rx 5/325] Sulfamethoxazole/Trimethoprim 1 each PO BID #10 tablet 04/17/16 Unknown Rx [Bactrim DS TAB] Tramadol HCl 50 mg PO Q4H PRN #16 04/17/16 Unknown Rx amLODIPine [Norvasc] 5 mg PO DAILY #30 tab 04/17/16 Unknown Rx Famotidine [Pepcid] 20 mg PO DAILY #20 tablet 06/12/17 Unknown Rx Sucralfate [Carafate] 1 gm PO ACHS PRN #200 ml 06/12/17 Unknown Rx traMADol [Ultram 50 MG tab] 50 mg PO Q6HR PRN #10 tablet 06/12/17 Unknown Rx Cyclobenzaprine [Flexeril] 10 mg PO QHS PRN #20 tablet 06/07/18 Unknown Rx Ibuprofen [Motrin] 800 mg PO Q8HR #40 tablet 06/07/18 Unknown Rx HYDROcodone/APAP 5-325 [[place] 1 - 2 each PO Q6HR PRN #14 tablet 08/21/18 Unknown Rx 5/325] metroNIDAZOLE [Flagyl] 500 mg PO Q8HR #21 tablet 08/21/18 Unknown Rx ED Review of Systems ROS: Stated complaint: STOMACH PAIN Other details as noted in HPI Constitutional: denies: fever Eyes: denies: eye pain ENT: denies: throat pain Respiratory: no symptoms reported Cardiovascular: denies: chest pain Endocrine: no symptoms reported Gastrointestinal: abdominal pain. denies: nausea, vomiting Genitourinary: denies: dysuria, hematuria Musculoskeletal: denies: back pain Neurological: denies: headache Physical Exam - Physical Exam Vital Signs: Vital Signs 08/20/18 17:52 Temperature 99.9 F H Pulse Rate 82 Respiratory 16 Rate Blood Pressure 126/89 [Left] O2 Sat by Pulse 97 Oximetry Physical Exam: GENERAL: The patient is well-developed well-nourished female lying on stretcher not appearing to be in acute distress. [] HEENT: Normocephalic. Atraumatic. Extraocular motions are intact. Patient has moist mucous membranes. NECK: Supple. Trachea midline CHEST/LUNGS: Clear to auscultation. There is no respiratory distress noted. HEART/CARDIOVASCULAR: Regular. There is no tachycardia. There is no gallop rub or murmur. ABDOMEN: Abdomen is soft, with tenderness to palpation in the right lower quadrant. Mild discomfort to palpation in the right upper quadrant. Palpation to the left lower quadrant causes discomfort in the right lower quadrant. Patient has normal bowel sounds. There is no abdominal distention. SKIN: There is no rash. There is no edema. There is no diaphoresis. NEURO: The patient is awake, alert, and oriented. The patient is cooperative. The patient has normal speech MUSCULOSKELETAL: There is no CVA tenderness. There is no evidence of acute injury. ED Course Vital Signs 08/20/18 17:52 Temperature 99.9 F H Pulse Rate 82 Respiratory 16 Rate Blood Pressure 126/89 [Left] O2 Sat by Pulse 97 Oximetry ED Medical Decision Making - Lab Data Result diagrams: 08/20/18 17:59 08/20/18 17:59 Laboratory Tests 08/20/18 08/20/18 08/21/18 17:59 17:59 00:00 WBC 9.8 RBC 4.55 Hgb 13.0 Hct 39.3 MCV 86 MCH 29 MCHC 33 RDW 13.3 Plt Count 163 Lymph % (Auto) 24.3 Sebastian % (Auto) 9.0 H Eos % (Auto) 0.6 Baso % (Auto) 0.5 Lymph # 2.4 Sebastian # 0.9 H Eos # 0.1 Baso # 0.1 Seg Neutrophils % 65.6 Seg Neutrophils # 6.4 Sodium 139 Potassium 3.9 Chloride 101.4 Carbon Dioxide 25 Anion Gap 17 BUN 13 Creatinine 1.1 Estimated GFR > 60 BUN/Creatinine Ratio 12 Glucose 107 H Calcium 9.3 Total Bilirubin 0.30 Direct Bilirubin < 0.2 Indirect Bilirubin 0.1 AST 21 ALT 22 Alkaline Phosphatase 68 Total Protein 7.7 Albumin 4.2 Albumin/Globulin Ratio 1.2 Urine Color Yellow Urine Turbidity Clear Urine pH 6.0 Ur Specific [place] 1.018 Urine Protein <15 mg/dl Urine Glucose (UA) Neg Urine Ketones Neg Urine Blood Neg Urine Nitrite Neg Urine Bilirubin Neg Urine Urobilinogen < 2.0 Ur Leukocyte Esterase Tr Urine WBC (Auto) < 1.0 Urine RBC (Auto) 2.0 U Epithel Cells (Auto) 3.0 - Radiology Data Radiology results: report reviewed (CT abdomen and pelvis), image reviewed (CT abdomen and pelvis) [address] [address] Cat Scan Report Signed Patient: ENID CAIN MR#: [id number] : 1955 Acct:[id number] Age/Sex: 63 / F ADM Date: 08/20/18 Loc: ED Attending Dr: Ordering Physician: ELIUD SAUCEDO MD Date of Service: 08/20/18 Procedure(s): CT abdomen pelvis w con Accession Number(s): [id number] cc: ELIUD SAUCEDO MD PROCEDURE: CT ABDOMEN PELVIS W CON TECHNIQUE: Computerized axial tomography of the abdomen and pelvis was performed after the IV injection of iodinated nonionic contrast. CT DOSE LENGTH PRODUCT: 1437 mGycm HISTORY: right lower quadrant abdominal pain. COMPARISONS: None . FINDINGS: Lower Lung resendez: There is a nodule seen in the left lower lobe anterior/lateral measuring 8 mm. This is only partially visualized on image 1 series 2. Upper Abdomen: Gallbladder is surgically absent. Intrahepatic ducts mildly prominent AND seen after cholecystectomy. The liver is otherwise unremarkable. The adrenal glands and the pancreas as well as the spleen show no abnormalities. Kidneys, Ureters and Urinary bladder: No abnormalities are seen. Retroperitoneum: Atherosclerotic changes are seen in the abdominal aorta. No aneurysm is visualized. Nonspecific subcentimeter lymph nodes are seen in the retroperitoneum. No pathologically enlarged lymph nodes are identified. Bowel: No evidence of bowel obstruction. There is no ascites or free intraperitoneal gas. Normal-appearing appendix appears to be partially visualized in the right lower quadrant. There is mild mucosal prominence within a few loops of small bowel overlying the lower pelvis anteriorly and also in the left upper quadrant suggesting nonspecific enteritis. These bowel loops are mildly fluid distended. Reproductive organs: Uterus and adnexa are unremarkable. Other: No acute bone abnormalities are visualized. IMPRESSION: Nonspecific enteritis is suspected. Bowel loops otherwise unremarkable. Normal-appearing appendix appears to be partially visualized with in the left lower lobe.. Prior cholecystectomy. Indeterminate nodular density only partially visualized in the left lower quadrant. Consider follow-up CT scan of the chest. This document is electronically signed by Don Cosby MD., August 21 2018 02:19:30 AM ET Transcribed By: DFN Dictated By: DON COSBY MD Electronically Authenticated By: DON COSBY MD Signed Date/Time: 08/21/18121 DD/ TD/TT: 08/21/1838 - Differential Diagnosis cystitis, ovarian cyst, diverticulitis, Critical care attestation.: If time is entered above; I have spent that time in minutes in the direct care of this critically ill patient, excluding procedure time. ED Disposition Clinical Impression: Acute abdominal pain Disposition: -01 TO HOME OR SELFCARE Is pt being admited?: No Does the pt Need Aspirin: No Condition: Stable Instructions: Abdominal Pain (ED) Additional Instructions: Return to the emergency department immediately should you develop worsening symptoms, fever, inability to tolerate food or liquid or any other concerns. Prescriptions: metroNIDAZOLE [Flagyl] 500 mg PO Q8HR #21 tablet HYDROcodone/APAP 5-325 [[place] 5/325] 1 - 2 each PO Q6HR PRN #14 tablet PRN Reason: Pain Referrals: [facility] MD JUSTIN [Primary Care Provider] - 3-5 Days KUNAL WEST MD [Staff Physician] - 3-5 Days (Dr. West is a gas dispatcher. Please follow up with him for further evaluation) BRETT MARIANO MD [Staff Physician] - [facility] (Dr. Mariano is an survey research center director (ear, nose and throat doctor). Please follow up with her for further evaluation of your nasal lesion) Time of Disposition: 01:36
[2018-08-21 00:14] LABS: Bilirubin,Urine NEG (Negative); Blood,Urine NEG (Negative); Color,Urine Yellow (Yellow); Protein,Urine <15 mg/dL mg/dL (Negative); Urobilinogen,Urine < 2.0 mg/dL (<2.0); WBC,Urine < 1.0 /HPF (0.0-6.0)
--- NOTE | 2018-08-21 01:22 | Cat Scan Report ---
PROCEDURE: CT ABDOMEN PELVIS W CON TECHNIQUE: Computerized axial tomography of the abdomen and pelvis was performed after the IV inject ion of iodinated nonionic contrast. CT DOSE LENGTH PRODUCT: 1437 mGycm HISTORY: right lower quadrant abdominal pain. COMPARISONS: None . FINDINGS: Lower Lung resendez: There is a nodule seen in the left lower lobe anterior/lateral measuring 8 mm. Th is is only partially visualized on image 1 series 2. Upper Abdomen: Gallbladder is surgically absent. Intrahepatic ducts mildly prominent AND seen after cholecystectomy. The liver is otherwise unremarkable. The adrenal glands and the pancreas as well as the spleen show no abnormalities. Kidneys, Ureters and Urinary bladder: No abnormalities are seen. Retroperitoneum: Atherosclerotic changes are seen in the abdominal aorta. No aneurysm is visualized. Nonspecific subcentimeter lymph nodes are seen in the retroperitoneum. No pathologically enlarged ly mph nodes are identified. Bowel: No evidence of bowel obstruction. There is no ascites or free intraperitoneal gas. Normal-sophie earing appendix appears to be partially visualized in the right lower quadrant. There is mild mucosal prominence within a few loops of small bowel overlying the lower pelvis anteriorly and also in the l eft upper quadrant suggesting nonspecific enteritis. These bowel loops are mildly fluid distended. Reproductive organs: Uterus and adnexa are unremarkable. Other: No acute bone abnormalities are visualized. IMPRESSION: Nonspecific enteritis is suspected. Bowel loops otherwise unremarkable. Normal-appearing appendix sophie ears to be partially visualized within the left lower lobe.. Prior cholecystectomy. Indeterminate nodular density only partially visualized in the left lower quadrant. Consider follow-u p CT scan of the chest. This document is electronically signed by Don Martin MD., August 21 2018 02:19:30 AM ET
[2018-08-21] MEDS ORDERED: DILAUDID IV ONE (01:41)
[2018-08-21 02:06] VITALS: BP 167/89
== END 2018-08-21 02:05 | disposition home or self-care (01) ==
LOC: ED 17:24
DX: R10.31 Right lower quadrant pain (principal); I10 Essential (primary) hypertension; F17.200 Nicotine dependence, unspecified, uncomplicated; Z90.49 Acquired absence of other specified parts of digestive tract
CPT/HCPCS: 36415; 74018; 74177; 80048; 80076; 81001; 85025; 96374; 96375; 99284; J1170; J2405; J3010; Q9967

== ENCOUNTER 2019-05-15 11:47 | Emergency (ER) | payer SELFPAY ==
--- NOTE | 2019-05-15 13:34 | Emergency Department Report ---
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 PMHx none no allergies to meds Vitals with slightly elevated blood pressure, will have patient follow-up with a primary care physician, patient is not having any symptoms related to elevated blood pressure, it is not recommended to start blood pressure medication after one elevated blood pressure reading on exam: Non toxic appearing, no acute distress atraumatic, normocephalic normal appearance of the eyes, PERRL, EOMI, no periorbital edema or ecchymosis moist mucus membranes regular heart rate and rhythm, no gallops, no rubs, no murmurs breath sounds are clear bilaterally, no w/r/r mild ttp over the bilateral ischial tuberosities, no deformity, no edema, FROM of the BLE without difficulty or pain, no leg edema, neurovascularly intact A&O x4, no focal neuro deficit skin is warm, dry, intact central sterilization technician for examination: KONSTANTIN silvestre Patient has had no traumatic injury She is ambulatory without difficulty Symptoms could be related to ischial bursitis, arthritis, muscle strain Discussed supportive care and symptomatic treatment with patient Patient referred to a primary care physician and orthopedic doctor Discussed strict return precautions with the patient Medical screening examination performed and there is no threat to life or limb at this time MSE screening note: Focused history and physical exam performed. ED Disposition for MSE Clinical Impression: Ischial pain Qualifiers: Laterality: unspecified laterality Qualified Code(s): M25.559 - Pain in unspecified hip Disposition: Z-07 MED SCREENING EXAM-LEFT Is pt being admited?: No Does the pt Need Aspirin: No Condition: Stable Instructions: Arthralgia (ED) Additional Instructions: may alternate tylenol then ibuprofen every 6 hours as needed for pain. may use ice pack, heating pad, rest, epsom salt bath. may use an arthritis ointment. may do stretching. do not sit on hard surfaces for long periods. follow up with a primary care doctor. follow up with an orthopedic doctor. return to emergency room for any new or worsening symptoms. Referrals: [facility] [Outside] - 2-3 Days [facility] [Outside] - 2-3 Days JESE BILLINGSLEY MD [Staff Physician] - 2-3 Days AMARA SY MD [Staff Physician] - 2-3 Days [facility] [Provider Group] - 2-3 Days Time of Disposition: 13:34 Print Language: SYRIAN
[2019-05-15 13:52] VITALS: BP 176/94
== END 2019-05-15 14:00 | disposition left against medical advice (07) ==
LOC: ED 11:47
DX: M25.551 Pain in right hip (principal)
CPT/HCPCS: 99282

== ENCOUNTER 2020-01-02 20:32 | Emergency (ER) | payer SELFPAY ==
--- NOTE | 2020-01-03 03:26 | Emergency Department Report ---
ED General Adult HPI - General Chief complaint: Rectal Pain Stated complaint: BUTTOCKS PAIN Source: patient Mode of arrival: Ambulatory Limitations: No Limitations - History of Present Illness Initial comments: Patient is a 64-year-old -Hungarian female with a history of hypertension who presents to the ED with persistent intermittent rectal pain for the last 9 months, worse in the last 1 week. Patient states that she was initially evaluated by her primary care physician who gave a prescription for antibiotic thinking that the pain in her rectal area was from an abscess. Patient states that after every bowel movement she noticed this is hemorrhoid-like swelling in her rectum which is painful, and the pain which gets worse whenever she sits down. Patient states that the swelling has been intermittent but appears to be appearing with bowel movement. Patient states that in the last 1 week, the frequency of occurrence of the painful rectal swelling has increased. Patient denies rectal bleeding, vaginal bleeding, dysuria, urinary frequency and urgency, fever, chills, cough, nausea, vomiting, abdominal pain, constipation or diarrhea and hematochezia. MD Complaint: rectal pain -: Gradual, week(s), month(s) (9) Location: buttocks Radiation: non-radiation Severity scale (0 -10): 2 Quality: aching, dull Consistency: intermittent Improves with: none Worsens with: rest, other (bowel movement) Associated Symptoms: denies other symptoms. denies: confusion, chest pain, cough, diaphoresis, fever/chills, headaches, loss of appetite, malaise, nausea/vomiting, rash, seizure, shortness of breath, syncope, weakness, other Treatments Prior to Arrival: none - Related Data Home Medications Medication Instructions Recorded Confirmed Last Taken Ventolin HFA 2 puff IH QID PRN 11/27/15 12/25/15 Unknown amLODIPine 5 mg PO DAILY 11/27/15 12/25/15 Unknown Previous Rx's Medication Instructions Recorded Last Taken Type Ciprofloxacin HCl [Ciprofloxacin 500 mg PO Q12H #20 tab 12/25/15 Unknown Rx TAB] Promethazine [Phenergan TAB] 25 mg PO Q6HR PRN #14 tab 12/25/15 Unknown Rx metroNIDAZOLE [Flagyl] 500 mg PO Q8HR #30 tablet 12/25/15 Unknown Rx HYDROcodone/APAP 5-325 [[place] 1 each PO Q6HR PRN #12 tablet 04/02/16 Unknown Rx 5/325] Sulfamethoxazole/Trimethoprim 1 each PO BID #10 tablet 04/17/16 Unknown Rx [Bactrim DS TAB] Tramadol HCl 50 mg PO Q4H PRN #16 04/17/16 Unknown Rx amLODIPine [Norvasc] 5 mg PO DAILY #30 tab 04/17/16 Unknown Rx Famotidine [Pepcid] 20 mg PO DAILY #20 tablet 06/12/17 Unknown Rx Sucralfate [Carafate] 1 gm PO ACHS PRN #200 ml 06/12/17 Unknown Rx traMADoL [Ultram 50 MG tab] 50 mg PO Q6HR PRN #10 tablet 06/12/17 Unknown Rx Cyclobenzaprine [Flexeril] 10 mg PO QHS PRN #20 tablet 06/07/18 Unknown Rx Ibuprofen [Motrin] 800 mg PO Q8HR #40 tablet 06/07/18 Unknown Rx HYDROcodone/APAP 5-325 [[place] 1 - 2 each PO Q6HR PRN #14 tablet 08/21/18 Unknown Rx 5/325] metroNIDAZOLE [Flagyl] 500 mg PO Q8HR #21 tablet 08/21/18 Unknown Rx Dibucaine 1% [Nupercainal] 1 applicatio [place] TID PRN #1 tube 01/03/20 Unknown Rx Hydrocortisone [Anusol-Hc 2.5% TOP 1 applic RC Q8H PRN #1 tube 01/03/20 Unknown Rx CREAM] Naproxen 500 mg PO Q12H PRN #20 tablet 01/03/20 Unknown Rx Allergies Allergy/AdvReac Type Severity Reaction Status Date / Time No Known Allergies Allergy Verified 08/20/18 17:28 ED Review of Systems ROS: Stated complaint: BUTTOCKS PAIN Other details as noted in HPI Constitutional: denies: chills, fever Eyes: denies: eye pain, eye discharge, vision change ENT: denies: ear pain, throat pain Respiratory: denies: cough, shortness of breath, wheezing Cardiovascular: denies: chest pain, palpitations Endocrine: no symptoms reported Gastrointestinal: other (rectal pain). denies: abdominal pain, nausea, diarrhea Genitourinary: denies: urgency, dysuria, discharge Musculoskeletal: denies: back pain, joint swelling, arthralgia Skin: denies: rash, lesions Neurological: denies: headache, weakness, paresthesias Psychiatric: denies: anxiety, depression Hematological/Lymphatic: denies: easy bleeding, easy bruising ED Past Medical Hx - Past Medical History Previous Medical History?: No Hx Hypertension: Yes - Surgical History Past Surgical History?: Yes Hx Cholecystectomy: Yes Hx Appendectomy: Yes - Social History Smoking Status: Never Smoker Substance Use Type: None - Medications Home Medications: Home Medications Medication Instructions Recorded Confirmed Last Taken Type Ventolin HFA 2 puff IH QID PRN 11/27/15 12/25/15 Unknown History amLODIPine 5 mg PO DAILY 11/27/15 12/25/15 Unknown History Ciprofloxacin HCl [Ciprofloxacin 500 mg PO Q12H #20 tab 12/25/15 Unknown Rx TAB] Promethazine [Phenergan TAB] 25 mg PO Q6HR PRN #14 tab 12/25/15 Unknown Rx metroNIDAZOLE [Flagyl] 500 mg PO Q8HR #30 tablet 12/25/15 Unknown Rx HYDROcodone/APAP 5-325 [[place] 1 each PO Q6HR PRN #12 tablet 04/02/16 Unknown Rx 5/325] Sulfamethoxazole/Trimethoprim 1 each PO BID #10 tablet 04/17/16 Unknown Rx [Bactrim DS TAB] Tramadol HCl 50 mg PO Q4H PRN #16 04/17/16 Unknown Rx amLODIPine [Norvasc] 5 mg PO DAILY #30 tab 04/17/16 Unknown Rx Famotidine [Pepcid] 20 mg PO DAILY #20 tablet 06/12/17 Unknown Rx Sucralfate [Carafate] 1 gm PO ACHS PRN #200 ml 06/12/17 Unknown Rx traMADoL [Ultram 50 MG tab] 50 mg PO Q6HR PRN #10 tablet 06/12/17 Unknown Rx Cyclobenzaprine [Flexeril] 10 mg PO QHS PRN #20 tablet 06/07/18 Unknown Rx Ibuprofen [Motrin] 800 mg PO Q8HR #40 tablet 06/07/18 Unknown Rx HYDROcodone/APAP 5-325 [[place] 1 - 2 each PO Q6HR PRN #14 tablet 08/21/18 Unknown Rx 5/325] metroNIDAZOLE [Flagyl] 500 mg PO Q8HR #21 tablet 08/21/18 Unknown Rx Dibucaine 1% [Nupercainal] 1 applicatio [place] TID PRN #1 tube 01/03/20 Unknown Rx Hydrocortisone [Anusol-Hc 2.5% TOP 1 applic RC Q8H PRN #1 tube 01/03/20 Unknown Rx CREAM] Naproxen 500 mg PO Q12H PRN #20 tablet 01/03/20 Unknown Rx ED Physical Exam - General Limitations: No Limitations General appearance: alert, in no apparent distress - Head Head exam: Present: atraumatic, normocephalic, normal inspection - Eye Eye exam: Present: normal appearance, PERRL, EOMI Pupils: Present: normal accommodation - ENT ENT exam: Present: normal exam, normal orophraynx, mucous membranes moist, TM's normal bilaterally, normal external ear exam - Neck Neck exam: Present: normal inspection, full ROM - Respiratory Respiratory exam: Present: normal lung sounds bilaterally. Absent: respiratory distress, wheezes, rales, rhonchi, stridor, chest wall tenderness, accessory muscle use, decreased breath sounds, prolonged expiratory - Cardiovascular Cardiovascular Exam: Present: regular rate, normal rhythm, normal heart sounds. Absent: systolic murmur, diastolic murmur, rubs, gallop - GI/Abdominal GI/Abdominal exam: Present: soft, normal bowel sounds. Absent: tenderness, guarding, rebound, hyperactive bowel sounds - Rectal Rectal exam: Present: hemorrhoids (External), other (Female ED instructional media services technician mandate retail service merchandiser Ms. Khann present) - External exam: Present: normal external exam - Extremities Exam Extremities exam: Present: normal inspection, full ROM, normal capillary refill - Back Exam Back exam: Present: normal inspection, full ROM. Absent: tenderness, CVA tenderness (R), CVA tenderness (L), muscle spasm, paraspinal tenderness, vertebral tenderness - Neurological Exam Neurological exam: Present: alert, oriented X3, CN II-XII intact, normal gait, reflexes normal - Psychiatric Psychiatric exam: Present: normal affect, normal mood - Skin Skin exam: Present: warm, dry, intact, normal color. Absent: rash ED Course Vital Signs 01/02/20 21:28 Temperature 98.1 F Pulse Rate 61 Respiratory 16 Rate Blood Pressure 169/91 O2 Sat by Pulse 90 Oximetry ED Medical Decision Making - Medical Decision Making This is a 64-year-old -Hung[place] female with a history of hypertension who presents to the ED with persistent intermittent rectal pain for the last 9 months, worse in the last 1 week. Patient states that she was initially evaluated by her primary care physician who gave a prescription for antibiotic thinking that the pain in her rectal area was from an abscess. Patient states that after every bowel movement she noticed this is hemorrhoid-like swelling in her rectum which is painful, and the pain which gets worse whenever she sits down. Patient states that the swelling has been intermittent but appears to be appearing with bowel movement. Patient states that in the last 1 week, the frequency of occurrence of the painful rectal swelling has increased. In the ED, patient is alert and oriented x3 and is not in distress. Patient was discharged home on medications and advised to follow-up with her primary care adrián nelson in 5 to 7 days for reevaluation or return to the ED immediately if symptoms get worse. - Differential Diagnosis Hemorrhoids; Bartholin cyst; rectal abscess; Critical care attestation.: If time is entered above; I have spent that time in minutes in the direct care of this critically ill patient, excluding procedure time. ED Disposition Clinical Impression: External hemorrhoids Disposition: TO HOME OR SELFCARE Is pt being admited?: No Does the pt Need Aspirin: No Condition: Stable Instructions: Hemorrhoids (ED) Additional Instructions: Apply the medication to the affected area as needed. Follow-up with your primary care physician in 7 to 10 days for reevaluation. Return to the ED immediately if symptoms get worse. Prescriptions: Hydrocortisone [Anusol-Hc 2.5% TOP CREAM] 1 applic RC Q8H PRN #1 tube PRN Reason: Hemorrhoids Naproxen 500 mg PO Q12H PRN #20 tablet PRN Reason: Pain , Severe (7-10) Dibucaine 1% [Nupercainal] 1 applicatio [place] TID PRN #1 tube PRN Reason: Hemorrhoids Referrals: JESE BILLINGSLEY MD [Staff Physician] - 7-10 days Time of Disposition: 03:26 Print Language: ARMENIAN
[2020-01-03 03:51] VITALS: BP 147/82
== END 2020-01-03 03:50 | disposition home or self-care (01) ==
LOC: ED 20:32
DX: K64.4 Residual hemorrhoidal skin tags (principal); I10 Essential (primary) hypertension; Z79.899 Other long term (current) drug therapy; Z90.49 Acquired absence of other specified parts of digestive tract
CPT/HCPCS: 99282

== ENCOUNTER 2020-02-12 18:17 | Emergency (ER) | payer SELFPAY ==
--- NOTE | 2020-02-12 18:38 | Event Note ---
ED Screening Note ED Screening Note: suprapubic abd pain that began two days ago +dysuria no dark urine or odor +lower back pain no fever no n/v/d no cough no SOB no CP PMHx HTN allergy: none states she takes amlodipine at night, she states she just took her nighttime dose This initial assessment/diagnostic orders/clinical plan/treatment(s) is/are subject to change based on patients health status, clinical progression and re- assessment by fellow clinical providers in the ED. Further treatment and workup at subsequent clinical providers discretion. Patient/guardian urged not to elope from the ED as their condition may be serious if not clinically assessed and managed. Initial orders include: ua, urine preg
[2020-02-12 19:06] LABS: Bilirubin,Urine NEG (Negative); Blood,Urine SM (Negative); Color,Urine Yellow (Yellow); Mucus,Urine FEW /HPF; Protein,Urine <15 mg/dL mg/dL (Negative); Urobilinogen,Urine < 2.0 mg/dL (<2.0)
[2020-02-12] MEDS ORDERED: SODIUM CHLORIDE 0.9% 1000 ML 1,000 ML IV ONE (19:37)
[2020-02-12] MEDS ORDERED: MORPHINE 4 MG/1 ML INJ IV ONE (19:37)
[2020-02-12] MEDS ORDERED: ONDANSETRON 4 MG/2 ML INJ IV ONE (19:37)
[2020-02-12] MEDS ORDERED: KETOROLAC 30 MG/1 ML INJ IV ONE (19:37)
--- NOTE | 2020-02-12 19:48 | Emergency Department Report ---
ED Abdominal Pain HPI - General Chief Complaint: Abdominal Pain Stated Complaint: HBP/ABD PAIN Time Seen by Provider: 02/12/20 18:35 Source: patient Mode of arrival: Ambulatory Limitations: No Limitations - History of Present Illness Initial Comments: 65-year-old F Albanian female past medical history of hypertension that is uncontrolled presents emerged from complaining of a 2-day history of progressive worsening burning and cramping lower abdominal pain which is been progressively worsening since the onset with palpation and and range of motion and she did report having some dysuria today but that was not the initial symptom. She reports no increased urinary urgency no decreased urinary production and and no hematuria. Ports no fever, chills, sweats and she has a history of a cholecystectomy years ago MD Complaint: abdominal pain, other -: days(s) (2) Location: LLQ, RLQ Radiation: none Migration to: no migration Severity: moderate Quality: aching, dull Consistency: constant Worsens With: nothing Associated Symptoms: denies: nausea, vomiting, diarrhea, constipation, dysuria, hematemesis, hematuria, anorexia, syncope - Related Data Home Medications Medication Instructions Recorded Confirmed Last Taken Ventolin HFA 2 puff IH QID PRN 11/27/15 12/25/15 Unknown amLODIPine 5 mg PO DAILY 11/27/15 12/25/15 Unknown Previous Rx's Medication Instructions Recorded Last Taken Type Ciprofloxacin HCl [Ciprofloxacin 500 mg PO Q12H #20 tab 12/25/15 Unknown Rx TAB] Promethazine [Phenergan TAB] 25 mg PO Q6HR PRN #14 tab 12/25/15 Unknown Rx metroNIDAZOLE [Flagyl] 500 mg PO Q8HR #30 tablet 12/25/15 Unknown Rx HYDROcodone/APAP 5-325 [[place] 1 each PO Q6HR PRN #12 tablet 04/02/16 Unknown Rx 5/325] Sulfamethoxazole/Trimethoprim 1 each PO BID #10 tablet 04/17/16 Unknown Rx [Bactrim DS TAB] Tramadol HCl 50 mg PO Q4H PRN #16 04/17/16 Unknown Rx amLODIPine [Norvasc] 5 mg PO DAILY #30 tab 04/17/16 Unknown Rx Famotidine [Pepcid] 20 mg PO DAILY #20 tablet 06/12/17 Unknown Rx Sucralfate [Carafate] 1 gm PO ACHS PRN #200 ml 06/12/17 Unknown Rx traMADoL [Ultram 50 MG tab] 50 mg PO Q6HR PRN #10 tablet 06/12/17 Unknown Rx Cyclobenzaprine [Flexeril] 10 mg PO QHS PRN #20 tablet 06/07/18 Unknown Rx Ibuprofen [Motrin] 800 mg PO Q8HR #40 tablet 06/07/18 Unknown Rx HYDROcodone/APAP 5-325 [[place] 1 - 2 each PO Q6HR PRN #14 tablet 08/21/18 Unknown Rx 5/325] metroNIDAZOLE [Flagyl] 500 mg PO Q8HR #21 tablet 08/21/18 Unknown Rx Dibucaine 1% [Nupercainal] 1 applicatio [place] TID PRN #1 tube 01/03/20 Unknown Rx Hydrocortisone [Anusol-Hc 2.5% TOP 1 applic RC Q8H PRN #1 tube 01/03/20 Unknown Rx CREAM] Naproxen 500 mg PO Q12H PRN #20 tablet 01/03/20 Unknown Rx Hyoscyamine Subl [Levsin Sl 0.125 0.125 mg SL Q6HR PRN #20 tab 02/12/20 Unknown Rx TAB] Allergies Allergy/AdvReac Type Severity Reaction Status Date / Time No Known Allergies Allergy Verified 08/20/18 17:28 ED Review of Systems ROS: Stated complaint: HBP/ABD PAIN Other details as noted in HPI Comment: All other systems reviewed and negative ED Past Medical Hx - Past Medical History Previous Medical History?: Yes Hx Hypertension: Yes Additional medical history: Abd pain and cramping - Surgical History Past Surgical History?: Yes Hx Cholecystectomy: Yes Hx Appendectomy: Yes - Social History Smoking Status: Former Smoker Substance Use Type: Alcohol - Medications Home Medications: Home Medications Medication Instructions Recorded Confirmed Last Taken Type Ventolin HFA 2 puff IH QID PRN 11/27/15 12/25/15 Unknown History amLODIPine 5 mg PO DAILY 11/27/15 12/25/15 Unknown History Ciprofloxacin HCl [Ciprofloxacin 500 mg PO Q12H #20 tab 12/25/15 Unknown Rx TAB] Promethazine [Phenergan TAB] 25 mg PO Q6HR PRN #14 tab 12/25/15 Unknown Rx metroNIDAZOLE [Flagyl] 500 mg PO Q8HR #30 tablet 12/25/15 Unknown Rx HYDROcodone/APAP 5-325 [[place] 1 each PO Q6HR PRN #12 tablet 04/02/16 Unknown Rx 5/325] Sulfamethoxazole/Trimethoprim 1 each PO BID #10 tablet 04/17/16 Unknown Rx [Bactrim DS TAB] Tramadol HCl 50 mg PO Q4H PRN #16 04/17/16 Unknown Rx amLODIPine [Norvasc] 5 mg PO DAILY #30 tab 04/17/16 Unknown Rx Famotidine [Pepcid] 20 mg PO DAILY #20 tablet 06/12/17 Unknown Rx Sucralfate [Carafate] 1 gm PO ACHS PRN #200 ml 06/12/17 Unknown Rx traMADoL [Ultram 50 MG tab] 50 mg PO Q6HR PRN #10 tablet 06/12/17 Unknown Rx Cyclobenzaprine [Flexeril] 10 mg PO QHS PRN #20 tablet 06/07/18 Unknown Rx Ibuprofen [Motrin] 800 mg PO Q8HR #40 tablet 06/07/18 Unknown Rx HYDROcodone/APAP 5-325 [[place] 1 - 2 each PO Q6HR PRN #14 tablet 08/21/18 Unknown Rx 5/325] metroNIDAZOLE [Flagyl] 500 mg PO Q8HR #21 tablet 08/21/18 Unknown Rx Dibucaine 1% [Nupercainal] 1 applicatio [place] TID PRN #1 tube 01/03/20 Unknown Rx Hydrocortisone [Anusol-Hc 2.5% TOP 1 applic RC Q8H PRN #1 tube 01/03/20 Unknown Rx CREAM] Naproxen 500 mg PO Q12H PRN #20 tablet 01/03/20 Unknown Rx Hyoscyamine Subl [Levsin Sl 0.125 0.125 mg SL Q6HR PRN #20 tab 02/12/20 Unknown Rx TAB] ED Physical Exam - General Limitations: No Limitations General appearance: alert, in no apparent distress - Head Head exam: Present: atraumatic, normocephalic - Eye Eye exam: Present: normal appearance, PERRL, EOMI Pupils: Present: normal accommodation - ENT ENT exam: Present: normal exam, mucous membranes moist, TM's normal bilaterally - Neck Neck exam: Present: normal inspection, full ROM - Respiratory Respiratory exam: Present: normal lung sounds bilaterally. Absent: respiratory distress, wheezes, rales, accessory muscle use, decreased breath sounds - Cardiovascular Cardiovascular Exam: Present: regular rate, normal rhythm. Absent: bradycardia, tachycardia, systolic murmur, diastolic murmur, rubs, gallop - GI/Abdominal GI/Abdominal exam: Present: soft, tenderness (At the epigastric and suprapubic region), normal bowel sounds, other (No Rovsing, no Ballesteros Weinstein, no Juan Pablo sign no tenderness at Antoine). Absent: guarding, rebound, rigid, hyperactive bowel sounds, hypoactive bowel sounds, organomegaly, mass - Extremities Exam Extremities exam: Present: normal inspection, full ROM, normal capillary refill - Back Exam Back exam: Present: normal inspection. Absent: CVA tenderness (R), CVA tenderness (L), muscle spasm, paraspinal tenderness - Neurological Exam Neurological exam: Present: alert, oriented X3, CN II-XII intact, normal gait - Psychiatric Psychiatric exam: Present: normal affect, normal mood. Absent: depressed, agitated, anxious, flat affect, suicidal ideation - Skin Skin exam: Present: warm, dry, intact, normal color. Absent: rash, cyanosis, diaphoretic, erythema, urticaria, petechiae, pallor ED Course Vital Signs 02/12/20 18:20 Temperature 98.3 F Pulse Rate 100 H Respiratory 18 Rate Blood Pressure 184/103 O2 Sat by Pulse 99 Oximetry ED Medical Decision Making - Lab Data Result diagrams: 02/12/20 19:37 02/12/20 19:37 Lab Results 02/12/20 02/12/20 02/12/20 Range/Units 18:48 19:37 19:37 WBC 8.7 (4.5-11.0) K/mm3 RBC 4.93 (3.65-5.03) M/mm3 Hgb 14.0 (10.1-14.3) gm/dl Hct 42.8 (30.3-42.9) % MCV 87 (79-97) fl MCH 28 (28-32) pg MCHC 33 (30-34) % RDW 13.9 (13.2-15.2) % Plt Count 190 (140-440) K/mm3 Lymph % (Auto) 40.5 H (13.4-35.0) % [place] % (Auto) 9.9 H (0.0-7.3) % Eos % (Auto) 1.4 (0.0-4.3) % Baso % (Auto) 0.7 (0.0-1.8) % Lymph # (Auto) 3.5 (1.2-5.4) K/mm3 [place] # (Auto) 0.9 H (0.0-0.8) K/mm3 Eos # (Auto) 0.1 (0.0-0.4) K/mm3 Baso # (Auto) 0.1 (0.0-0.1) K/mm3 Seg Neutrophils % 47.5 (40.0-70.0) % Seg Neutrophils # 4.1 (1.8-7.7) K/mm3 Sodium 137 (137-145) mmol/L Potassium 3.6 (3.6-5.0) mmol/L Chloride 102.3 (98-107) mmol/L Carbon Dioxide 24 (22-30) mmol/L Anion Gap 14 mmol/L BUN 14 (7-17) mg/dL Creatinine 0.8 (0.6-1.2) mg/dL Estimated GFR > 60 ml/min BUN/Creatinine Ratio 18 % Glucose 78 (65-100) mg/dL Calcium 9.1 (8.4-10.2) mg/dL Total Bilirubin 0.30 (0.1-1.2) mg/dL Direct Bilirubin < 0.2 (0-0.2) mg/dL Indirect Bilirubin 0.1 mg/dL AST 26 (5-40) units/L ALT 29 (7-56) units/L Alkaline Phosphatase 83 (35-129) units/L Total Protein 7.9 (6.3-8.2) g/dL Albumin 4.1 (3.9-5) g/dL Albumin/Globulin Ratio 1.1 % Lipase 39 (13-60) units/L Urine Color Yellow (Yellow) Urine Turbidity Clear (Clear) Urine pH 5.0 (5.0-7.0) Ur Specific [place] 1.014 (1.003-1.030) Urine Protein <15 mg/dl (Negative) mg/dL Urine Glucose (UA) Neg (Negative) mg/dL Urine Ketones Neg (Negative) mg/dL Urine Blood Sm (Negative) Urine Nitrite Neg (Negative) Urine Bilirubin Neg (Negative) Urine Urobilinogen < 2.0 (<2.0) mg/dL Ur Leukocyte Esterase Neg (Negative) Urine WBC (Auto) 2.0 (0.0-6.0) /HPF Urine RBC (Auto) 2.0 (0.0-6.0) /HPF U Epithel Cells (Auto) 3.0 (0-13.0) /HPF Urine Mucus Few /HPF - Radiology Data Radiology results: report reviewed [facility] [address] [place] [address] Cat Scan Report Signed Patient: ENID CAIN MR#: [id number] : 1955 Acct:[id number] Age/Sex: 65 / F ADM Date: 02/12/20 Loc: ED Attending Dr: Ordering Physician: JACOBY BOOKER Date of Service: 02/12/20 Procedure(s): CT abdomen pelvis w con Accession Number(s): [id number] cc: JACOBY BOOKER CT ABDOMEN AND PELVIS WITH CONTRAST INDICATION: Abdominal Pain. TECHNIQUE: Axial CT images were obtained through the abdomen and pelvis after 100 cc Omni [address] scans at this location are performed using CT dose reduction for ALARA by means of automated exposure control. COMPARISON: CT abdomen pelvis 08/21/2018 FINDINGS: LOWER CHEST: No significant abnormality. LIVER: No significant abnormality. GALLBLADDER: Surgically absent BILE DUCTS: Mild to moderate biliary duct dilatation measuring 11 mm, unchanged without CT evidence for choledocholithiasis PANCREAS: Dilated pancreatic duct measuring 4 mm within pancreatic head, unchanged SPLEEN: No significant abnormality. ADRENALS: No significant abnormality. RIGHT KIDNEY and URETER: No significant abnormality. LEFT KIDNEY and URETER: No significant abnormality. STOMACH and SMALL BOWEL: No significant abnormality. COLON: Mild sigmoid diverticulosis without diverticulitis APPENDIX: Not visualized possibly surgically absent. No acute inflammatory process PERITONEUM: No free fluid. No free air. No fluid collection. LYMPH NODES: No significant adenopathy. AORTA and ARTERIES: No significant abnormality. IVC and VEINS: No significant abnormality. URINARY BLADDER: No significant abnormality. REPRODUCTIVE ORGANS: No significant abnormality. ADDITIONAL FINDINGS: None. SKELETAL SYSTEM: Degenerative changes lumbar spine IMPRESSION: 1. Biliary and pancreatic ductal dilatation, unchanged. 2. Mild sigmoid diverticulosis without diverticulitis. Signer Name: Mahesh Jenkins MD Signed: 02/12/2020 9:10 PM Workstation Name: [id number] Transcribed By: TL Dictated By: Mahesh Jenkins MD Electronically Authenticated By: Mahesh Jenkins MD Signed Date/Time: 02/12/202109 DD/ 05 TD/TT: - Medical Decision Making This patient presents with abdominal pain of unclear etiology. A CT scan was performed to evaluate for potential causes of the abdominal pain, however, neith er the clinical exam nor the CT has identified an emergent etiology for the abdominal pain. Specifically, given the benign exam, the laboratory studies, and unremarkable CT, I have a very low suspicion for appendicitis, ischemic bowel, bowel perforation, or any other life threatening disease. I have discussed with the patient the level of uncertainty with undifferentiated abdominal pain and clearly explained the need to follow-up as noted on the discharge instructions, or return to the Emergency Department immediately if the pain worsens, develops fever, persistent and uncontrollable vomiting, or for any new symptoms or concerns. Critical care attestation.: If time is entered above; I have spent that time in minutes in the direct care of this critically ill patient, excluding procedure time. ED Disposition Clinical Impression: Abdominal pain, Diverticulosis, HTN (hypertension) Disposition: DC-01 TO HOME OR SELFCARE Is pt being admited?: No Does the pt Need Aspirin: No Condition: Stable Instructions: Abdominal Pain (ED), Abdominal Pain, Adult, [id number], Hypertension (ED), Hypertension, Adult Additional Instructions: Be sure to take your Norvasc when you return home compliant with your hypertensive medication is without complaints been Possible to control your blood pressure. Be sure to follow-up with your primary care provider or the listed provider to further evaluate your abdominal discomfort which is CT scan did not show any evidence of any acute processes or life-threatening issues Prescriptions: Hyoscyamine Subl [Levsin Sl 0.125 TAB] 0.125 mg SL Q6HR PRN #20 tab PRN Reason: abdominal pain Referrals: [facility] [Provider Group] - 3-5 Days JESE BILLINGSLEY MD [Staff Physician] - 3-5 Days
[2020-02-12 20:05] LABS: Basophils # (Auto) 0.1 K/mm3 (0.0-0.1); Basophils % (Auto) 0.7 % (0.0-1.8); Eosinophils # (Auto) 0.1 K/mm3 (0.0-0.4); Eosinophils % (Auto) 1.4 % (0.0-4.3); Hematocrit 42.8 % (30.3-42.9); Lymphocytes # (Auto) 3.5 K/mm3 (1.2-5.4); Lymphocytes % (Auto) 40.5 % (13.4-35.0); Mean Corpuscular HGB Conc 33 % (30-34); Mean Corpuscular Volume 87 fl (79-97); Monocytes # (Auto) 0.9 K/mm3 (0.0-0.8); Monocytes % (Auto) 9.9 % (0.0-7.3); Platelet Count 190 K/mm3 (140-440); Red Blood Count 4.93 M/mm3 (3.65-5.03); Red Cell Distribution Width 13.9 % (13.2-15.2)
[2020-02-12 20:22] LABS: Alanine Aminotransferase 29 units/L (7-56); Albumin 4.1 g/dL (3.9-5); BUN/Creatinine Ratio 18; Bilirubin,Direct < 0.2 mg/dL (0-0.2); Blood Urea Nitrogen 14 mg/dL (7-17); Calcium 9.1 mg/dL (8.4-10.2); Hemolysis Index 11
--- NOTE | 2020-02-12 21:15 | Cat Scan Report ---
CT ABDOMEN AND PELVIS WITH CONTRAST INDICATION: Abdominal Pain. TECHNIQUE: Axial CT images were obtained through the abdomen and pelvis after 100 cc Omni [address] scans at this location are performed using CT dose reduction for ALARA by means of automated expos ure control. COMPARISON: CT abdomen pelvis 08/21/2018 FINDINGS: LOWER CHEST: No significant abnormality. LIVER: No significant abnormality. GALLBLADDER: Surgically absent BILE DUCTS: Mild to moderate biliary duct dilatation measuring 11 mm, unchanged without CT evidence f or choledocholithiasis PANCREAS: Dilated pancreatic duct measuring 4 mm within pancreatic head, unchanged SPLEEN: No significant abnormality. ADRENALS: No significant abnormality. RIGHT KIDNEY and URETER: No significant abnormality. LEFT KIDNEY and URETER: No significant abnormality. STOMACH and SMALL BOWEL: No significant abnormality. COLON: Mild sigmoid diverticulosis without diverticulitis APPENDIX: Not visualized possibly surgically absent. No acute inflammatory process PERITONEUM: No xuan e fluid. No free air. No fluid collection. LYMPH NODES: No significant adenopathy. AORTA and ARTERIES: No significant abnormality. IVC and VEINS: No significant abnormality. URINARY BLADDER: No significant abnormality. REPRODUCTIVE ORGANS: No significant abnormality. ADDITIONAL FINDINGS: None. SKELETAL SYSTEM: Degenerative changes lumbar spine IMPRESSION: 1. Biliary and pancreatic ductal dilatation, unchanged. 2. Mild sigmoid diverticulosis without diverticulitis. Signer Name: Mahesh Jenkins MD Signed: 02/12/2020 9:10 PM Workstation Name: [id number]
[2020-02-12 22:59] VITALS: BP 160/99
== END 2020-02-12 22:58 | disposition home or self-care (01) ==
LOC: ED 18:17
DX: K57.90 Diverticulosis of intestine, part unspecified, without perforation or abscess without bleeding (principal); I10 Essential (primary) hypertension; Z90.49 Acquired absence of other specified parts of digestive tract; Z87.891 Personal history of nicotine dependence; Z79.899 Other long term (current) drug therapy
CPT/HCPCS: 36415; 74177; 80048; 80076; 81001; 83690; 85025; 96361; 96374; 96375; 99284; J1885; J2270; J2405; J7030; Q9967

== ENCOUNTER 2020-03-02 19:05 | Emergency (ER) | payer SELFPAY ==
[2020-03-02 19:45] VITALS: BP 144/98
--- NOTE | 2020-03-02 20:16 | Emergency Department Report ---
Chief Complaint: High BP Stated Complaint: BP HIGH - HPI History of Present Illness: 65-year-old -[place] female presents to the emergency room reporting she had a headache for 2 hours and checked her blood pressure and it was elevated with a systolic greater than 208. Patient does admit that she does not take her amlodipine 10 mg every day as she is supposed to. Patient states she did take her blood pressure medication and then came in to be evaluated. Patient denies any chest pain shortness of breathing like swelling nausea vomiting and states that her headache is improved. - Exam Vital Signs: Vital Signs 03/02/20 19:43 Temperature 98.4 F Pulse Rate 98 H Respiratory 16 Rate Blood Pressure 144/98 O2 Sat by Pulse 96 Oximetry Physical Exam: Alert and oriented x3 no acute distress nontoxic in appearance No accessory muscles used for breathing. Pulses within normal limits. MSE screening note: Focused history and physical exam performed. Due to findings the following was ordered: 65-year-old -[place] female presents to the emergency room reporting she had a headache for 2 hours and checked her blood pressure and it was elevated with a systolic greater than 208. Patient does admit that she does not take her amlodipine 10 mg every day as she is supposed to. Patient states she did take her blood pressure medication and then came in to be evaluated. Patient denies any chest pain shortness of breathing like swelling nausea vomiting and states that her headache is improved. Discussed with patient she needs to take her blood pressure medicine every day as this will prevent her having elevated blood pressures and headaches. ED Disposition for MSE Disposition: MED SCREENING EXAM-LEFT Is pt being admited?: No Does the pt Need Aspirin: No Condition: Stable Additional Instructions: Take blood pressure medication as prescribed by your Primary Care Provider. Referrals: ROBER JADE MD [Referring] - 3-5 Days
== END 2020-03-02 20:15 | disposition left against medical advice (07) ==
LOC: ED 19:05
DX: R03.0 Elevated blood-pressure reading, without diagnosis of hypertension (principal); Z53.21 Procedure and treatment not carried out due to patient leaving prior to being seen by health care provider

== ENCOUNTER 2020-03-04 11:49 | Emergency (ER) | payer SELFPAY ==
[2020-03-04 12:08] VITALS: BP 157/89
--- NOTE | 2020-03-04 13:02 | Emergency Department Report ---
Chief Complaint: High BP Stated Complaint: HIGH BLOOD PRESSURE - HPI History of Present Illness: 65-year-old -Samo[place] female with a history of hypertension presents to the emergency room concern for hypertension. Patient states that she checks her blood pressure constantly at home and she will get numbers as high as 208. Patient has been here several times for the same complaint and her blood pressures always been in the 150s over the 80s and 90s. Patient does have a primary care provider but does not follow-up. She is currently on amlodipine 10 mg. She denies any chest pain shortness of breath. She complains of intermittent headache but does not take anything for it. She denies any dizziness change of vision. - Exam Vital Signs: Vital Signs 03/04/20 11:56 Temperature 98.2 F Pulse Rate 85 Respiratory 14 Rate Blood Pressure 157/89 O2 Sat by Pulse 95 Oximetry Physical Exam: Patient is alert and oriented x3 no acute distress nontoxic in appearance Patient has nonlabored breathing Ambulatory without difficulties MSE screening note: Focused history and physical exam performed. Due to findings the following was ordered: 65-year-old -[place] female with a history of hypertension presents to the emergency room concern for hypertension. Patient states that she checks her blood pressure constantly at home and she will get numbers as high as 208. Patient has been here several times for the same complaint and her blood pressures always been in the 150s over the 80s and 90s. Patient does have a primary care provider but does not follow-up. She is currently on amlodipine 10 mg. She denies any chest pain shortness of breath. She complains of intermittent headache but does not take anything for it. She denies any dizziness change of vision. Discussed with patient that her blood pressure is stable she is to continue her amlodipine 10 mg and to follow-up with her primary care provider. Handout given to patient regarding management of hypertension. Encourage patient to avoid salty foods even condiments such as ketchup hot sauce barbecue sauce all has salt. Encourage patient to drink 4 to 5 L daily of water. ED Disposition for MSE Disposition: MED SCREENING EXAM-LEFT Is pt being admited?: No Does the pt Need Aspirin: No Condition: Stable Instructions: Managing Your Hypertension Additional Instructions: Try taking Tylenol or ibuprofen for headache. You can even try taking Excedrin. Increase your water intake and follow-up with your primary care provider. Referrals: ROBER JADE MD [Referring] - 3-5 Days
== END 2020-03-04 13:27 | disposition home or self-care (01) ==
LOC: ED 11:49
DX: I10 Essential (primary) hypertension (principal); Z53.21 Procedure and treatment not carried out due to patient leaving prior to being seen by health care provider

== ENCOUNTER 2020-11-17 22:18 | Emergency (ER) | payer BC ==
[2020-11-18] MEDS ORDERED: ASPIRIN 325 MG TAB PO ONE (00:47)
[2020-11-18] MEDS ORDERED: hydrALAZINE 25 MG TAB PO ONE (00:47)
--- NOTE | 2020-11-18 01:44 | XRay Report ---
CHEST 1 VIEW 11/18/2020 12:32 AM INDICATION / CLINICAL INFORMATION: chest. COMPARISON: 06/11/2017. FINDINGS: SUPPORT DEVICES: None. HEART / MEDIASTINUM: No significant abnormality. LUNGS / PLEURA: No significant pulmonary or pleural abnormality. No pneumothorax. Prior granulomatous exposure. ADDITIONAL FINDINGS: No significant additional findings. IMPRESSION: 1. No acute findings. Signer Name: Man Hernandez MD Signed: 11/18/2020 1:39 AM Workstation Name: [id number]
--- NOTE | 2020-11-18 02:03 | Emergency Department Report ---
HPI - General Chief Complaint: High BP Time Seen by Provider: 11/18/20 01:25 - HPI HPI: 65-year-old -[place] female presents to the emergency department with uncontrolled blood pressure. She complains of what sounds like palpitations that has been going on for weeks, but worsened recently after she was started on HCTZ 12.5 mg recently by her PCP, Dr. Quintanilla. She is also on amlodipine 10 mg and says that she is compliant with this medication, but she is sporadic with the HCTZ as she says that it is causing her to have increased palpitations and has caused some muscle spasms. Patient says that she went to see her PCP last Thursday and had a chest x-ray in which she says she was told that there was some type of abnormality at the bottom of her lung. She was encouraged to see some type of specialist, I am assuming a proteomics scientist, but the patient says "I do not have the money." Her PCP then told her that she can go to the emergency department if she needs to. She denies any tobacco or illicit drug use. The patient was at home this evening and found her blood pressure to be 200/100 so she came in for further evaluation. She denies any chest pain, nausea, vomiting, back pain, diaphoresis, lower extremity swelling, but does admit to some mild shortness of breath. ED Past Medical Hx - Past Medical History Hx Hypertension: Yes Additional medical history: Abd pain and cramping - Surgical History Hx Cholecystectomy: Yes Hx Appendectomy: Yes - Social History Smoking Status: Never Smoker Substance Use Type: None - Medications Home Medications: Home Medications Medication Instructions Recorded Confirmed Last Taken Type Ventolin HFA 2 puff IH QID PRN 11/27/15 12/25/15 Unknown History amLODIPine 5 mg PO DAILY 11/27/15 12/25/15 Unknown History Ciprofloxacin HCl [Ciprofloxacin 500 mg PO Q12H #20 tab 12/25/15 Unknown Rx TAB] Promethazine [Phenergan TAB] 25 mg PO Q6HR PRN #14 tab 12/25/15 Unknown Rx metroNIDAZOLE [Flagyl] 500 mg PO Q8HR #30 tablet 12/25/15 Unknown Rx HYDROcodone/APAP 5-325 [Adrian 1 each PO Q6HR PRN #12 tablet 04/02/16 Unknown Rx 5/325] Sulfamethoxazole/Trimethoprim 1 each PO BID #10 tablet 04/17/16 Unknown Rx [Bactrim DS TAB] Tramadol HCl 50 mg PO Q4H PRN #16 04/17/16 Unknown Rx amLODIPine [Norvasc] 5 mg PO DAILY #30 tab 04/17/16 Unknown Rx Famotidine [Pepcid] 20 mg PO DAILY #20 tablet 06/12/17 Unknown Rx Sucralfate [Carafate] 1 gm PO ACHS PRN #200 ml 06/12/17 Unknown Rx traMADoL [Ultram 50 MG tab] 50 mg PO Q6HR PRN #10 tablet 06/12/17 Unknown Rx Cyclobenzaprine [Flexeril] 10 mg PO QHS PRN #20 tablet 06/07/18 Unknown Rx Ibuprofen [Motrin] 800 mg PO Q8HR #40 tablet 06/07/18 Unknown Rx HYDROcodone/APAP 5-325 [Adrian 1 - 2 each PO Q6HR PRN #14 tablet 08/21/18 Unknown Rx 5/325] metroNIDAZOLE [Flagyl] 500 mg PO Q8HR #21 tablet 08/21/18 Unknown Rx Dibucaine 1% [Nupercainal] 1 applicatio [place] TID PRN #1 tube 01/03/20 Unknown Rx Hydrocortisone [Anusol-Hc 2.5% TOP 1 applic RC Q8H PRN #1 tube 01/03/20 Unknown Rx CREAM] Naproxen 500 mg PO Q12H PRN #20 tablet 01/03/20 Unknown Rx Hyoscyamine Subl [Levsin Sl 0.125 0.125 mg SL Q6HR PRN #20 tab 02/12/20 Unknown Rx TAB] hydrALAZINE [Apresoline TAB] 10 mg PO Q8H #90 tablet 11/18/20 Unknown Rx ED Review of Systems ROS: Stated complaint: HIGH BP Other details as noted in HPI Comment: All other systems reviewed and negative Constitutional: denies: chills, fever Eyes: denies: eye pain, vision change ENT: denies: ear pain, throat pain Respiratory: shortness of breath. denies: cough Cardiovascular: palpitations. denies: edema Gastrointestinal: denies: abdominal pain, vomiting Genitourinary: denies: dysuria, discharge Musculoskeletal: denies: back pain, arthralgia Skin: denies: rash, lesions Neurological: denies: headache, weakness Physical Exam - Physical Exam Vital Signs: Vital Signs 11/18/20 11/18/20 11/18/20 00:42 01:08 01:24 Temperature 98.4 F Pulse Rate 76 Respiratory 18 Rate Blood Pressure 191/115 Blood Pressure 194/115 [Left] O2 Sat by Pulse 99 100 Oximetry Physical Exam: GENERAL: The patient is well-developed well-nourished. HENT: Normocephalic. Atraumatic. Patient has moist mucous membranes. EYES: Extraocular motions are intact. NECK: Supple. Trachea is midline. CHEST/LUNGS: Clear to auscultation. There is no respiratory distress noted. HEART/CARDIOVASCULAR: Regular. There is no tachycardia. There is no murmur. ABDOMEN: Abdomen is soft, nontender. Patient has normal bowel sounds. There is no abdominal distention. SKIN: Skin is warm and dry. NEURO: The patient is awake, alert, and oriented. The patient is cooperative. The patient has no focal neurologic deficits. Normal speech. MUSCULOSKELETAL: There is no tenderness or deformity. There is no limitation range of motion. ED Course Vital Signs 11/18/20 11/18/20 11/18/20 00:42 01:08 01:24 Temperature 98.4 F Pulse Rate 76 Respiratory 18 Rate Blood Pressure 191/115 Blood Pressure 194/115 [Left] O2 Sat by Pulse 99 100 Oximetry ED Medical Decision Making - Lab Data Result diagrams: 11/18/20 01:33 11/18/20 01:33 Lab Results 11/18/20 11/18/20 11/18/20 Range/Units 01:33 01:33 02:02 WBC 8.7 (4.5-11.0) K/mm3 RBC 5.02 (3.65-5.03) M/mm3 Hgb 14.0 (10.1-14.3) gm/dl Hct 43.3 H (30.3-42.9) % MCV 86 (79-97) fl MCH 28 (28-32) pg MCHC 32 (30-34) % RDW 13.2 (13.2-15.2) % Plt Count 229 (140-440) K/mm3 Lymph % (Auto) 42.7 H (13.4-35.0) % [place] % (Auto) 9.2 H (0.0-7.3) % Eos % (Auto) 1.8 (0.0-4.3) % Baso % (Auto) 1.4 (0.0-1.8) % Lymph # (Auto) 3.7 (1.2-5.4) K/mm3 [place] # (Auto) 0.8 (0.0-0.8) K/mm3 Eos # (Auto) 0.2 (0.0-0.4) K/mm3 Baso # (Auto) 0.1 (0.0-0.1) K/mm3 Seg Neutrophils % 44.9 (40.0-70.0) % Seg Neutrophils # 3.9 (1.8-7.7) K/mm3 D-Dimer 740.42 H (0-234) ng/mlDDU Sodium 140 (137-145) mmol/L Potassium 3.8 (3.6-5.0) mmol/L Chloride 99.8 (98-107) mmol/L Carbon Dioxide 30 (22-30) mmol/L Anion Gap 14 mmol/L BUN 15 (7-17) mg/dL Creatinine 0.7 (0.6-1.2) mg/dL Estimated GFR > 60 ml/min BUN/Creatinine Ratio 21 % Glucose 98 (65-100) mg/dL Calcium 10.1 (8.4-10.2) mg/dL Total Bilirubin 0.20 (0.1-1.2) mg/dL AST 30 (5-40) units/L ALT 35 (7-56) units/L Alkaline Phosphatase 87 (35-129) units/L Troponin T < 0.010 (0.00-0.029) ng/mL Total Protein 8.2 (6.3-8.2) g/dL Albumin 4.7 (3.9-5) g/dL Albumin/Globulin Ratio 1.3 % - EKG Data -: EKG Interpreted by Me EKG shows normal: sinus rhythm, axis, intervals (Slightly prolonged [place] interval), QRS complexes, ST-T waves Rate: normal - EKG Data When compared to previous EKG there are: previous EKG unavailable Interpretation: other (Sinus rhythm, slightly prolonged [place] interval. No ST elev ation [place]) - Radiology Data Radiology results: report reviewed, image reviewed interpreted by me: Chest x-ray does not show any acute process. There are no pleural effusions, obvious pneumonia and there is no pneumothorax. No widened mediastinum. CTA CHEST WITH CONTRAST INDICATION / CLINICAL INFORMATION: Palpitations, Elevated dimer. TECHNIQUE: Axial CT images were obtained through the chest after injection of Omnipaque 350, 100 cc IV contrast. 3 plane MIP and/or 3D reconstructions were produced. All CT scans at this location are performed using CT dose reduction for ALARA by means of automated exposure control. COMPARISON: CT abdomen and pelvis 02/12/2020. FINDINGS: PULMONARY ARTERIES: No pulmonary emboli. THORACIC AORTA: No significant abnormality. HEART: No significant abnormality. CORONARY ARTERY CALCIFICATION: None. MEDIASTINUM / PETER: No significant abnormality. PLEURA: No pleural effusion. No pneumothorax. LUNGS: Calcified lingular nodule. 6 mm noncalcified nodule right upper lobe posteriorly (series 4, image 192) ADDITIONAL FINDINGS: None. UPPER ABDOMEN: Previous cholecystectomy. Dilatation of the bile duct and pancreatic duct is unchanged. SKELETAL STRUCTURES: No significant osseous abnormality. IMPRESSION: 1. No CT evidence for pulmonary embolism. 2. Negative for pneumonia. 3. 6 mm noncalcified right upper lobe nodule. - Medical Decision Making This patient presents to the emergency department with uncontrolled blood pressure, palpitations, and some intermittent midsternal chest and/or epigastric discomfort. On examination heart and lung sounds are normal to auscultation. The patient does not appear in any respiratory or acute distress. EKG does not have any morphology consistent with ST elevation myocardial infarction, or any dysrhythmia. Chest x-ray does not show any pneumonia, pleural effusions, pneumothorax, widened mediastinum, or any other acute process. Patient's labs have been mostly unremarkable including CBC, metabolic panel, negative troponin, but the patient did have an elevated D-dimer level of about 700. For this reason the patient had a CT angiography of the chest that did not show any pulmonary embolism, dissection, or any other acute process. There was a small upper lobe pulmonary nodule. I discussed this with the patient so she can bring it up with her primary care physician and do appropriate outpatient follow-up. Patient was given a dose of hydralazine and upon reevaluation her blood pressure has come down to a more reasonable level. She does not appear to have any life or limb threatening emergency or require a medical admission at this time. She has good outpatient follow-up with primary care. She will be given an outpatient referral for cardiology to follow-up regarding her palpitations and assistance with her blood pressure. Since the HCTZ has been making the patient feel ill, she will discontinue this medication and I am starting her on hydralazine. We also discussed staying away from foods that are high in salt and caffeinated products, and keeping a blood pressure lo g. She will return to the emergency department with any worsening of her symptoms or with any acute distress. Critical Care Time: No Critical care attestation.: If time is entered above; I have spent that time in minutes in the direct care of this critically ill patient, excluding procedure time. ED Disposition Clinical Impression: Uncontrolled hypertension, Pulmonary nodule, Palpitations Disposition: HOME / SELF CARE / HOMELESS Is pt being admited?: No Condition: Stable Instructions: Pulmonary Nodule, Palpitations, Hypertension, Adult, Hypertension (ED) Additional Instructions: Please follow-up with your primary care physician in the next few days. I am giving you a referral for a local rotary drill operator, Dr. Geronimo, to follow- up regarding the palpitations and assistance with blood pressure control. Stop taking the HCTZ, since you say that it makes you feel ill. I am starting you on a different blood pressure medication, hydralazine. Continue taking your amlodipine. Try to stay away from foods that are high in salt and caffeinated products. Keep a blood pressure log. Return to the emergency department with any worsening of your symptoms, new or concerning symptoms not addressed during this current emergency department visit, or with any acute distress. Prescriptions: hydrALAZINE [Apresoline TAB] 10 mg PO Q8H #90 tablet Referrals: PRIMARY CAREMD [Primary Care Provider] - 2-3 Days ARIEL GERONIMO [Staff Physician] - 2-3 Days Forms: Accompanied Note, Work/School Release Form(ED) Time of Disposition: 05:01
[2020-11-18 02:37] LABS: Basophils # (Auto) 0.1 K/mm3 (0.0-0.1); Basophils % (Auto) 1.4 % (0.0-1.8); Eosinophils # (Auto) 0.2 K/mm3 (0.0-0.4); Eosinophils % (Auto) 1.8 % (0.0-4.3); Hematocrit 43.3 % (30.3-42.9); Lymphocytes # (Auto) 3.7 K/mm3 (1.2-5.4); Lymphocytes % (Auto) 42.7 % (13.4-35.0); Mean Corpuscular HGB Conc 32 % (30-34); Mean Corpuscular Volume 86 fl (79-97); Monocytes # (Auto) 0.8 K/mm3 (0.0-0.8); Monocytes % (Auto) 9.2 % (0.0-7.3); Platelet Count 229 K/mm3 (140-440); Red Blood Count 5.02 M/mm3 (3.65-5.03); Red Cell Distribution Width 13.2 % (13.2-15.2)
[2020-11-18 02:59] LABS: Alanine Aminotransferase 35 units/L (7-56); Albumin 4.7 g/dL (3.9-5); Blood Urea Nitrogen 15 mg/dL (7-17); Calcium 10.1 mg/dL (8.4-10.2); Hemolysis Index 2
[2020-11-18 03:06] LABS: BUN/Creatinine Ratio 21
--- NOTE | 2020-11-18 04:28 | Cat Scan Report ---
CTA CHEST WITH CONTRAST INDICATION / CLINICAL INFORMATION: Palpitations, Elevated dimer. TECHNIQUE: Axial CT images were obtained through the chest after injection of Omnipaque 350, 100 cc I V contrast. 3 plane MIP and/or 3D reconstructions were produced. All CT scans at this location are pe rformed using CT dose reduction for ALARA by means of automated exposure control. COMPARISON: CT abdomen and pelvis 02/12/2020. FINDINGS: PULMONARY ARTERIES: No pulmonary emboli. THORACIC AORTA: No significant abnormality. HEART: No significant abnormality. CORONARY ARTERY CALCIFICATION: None. MEDIASTINUM / PETER: No significant abnormality. PLEURA: No pleural effusion. No pneumothorax. LUNGS: Calcified lingular nodule. 6 mm noncalcified nodule right upper lobe posteriorly (series 4, im age 192) ADDITIONAL FINDINGS: None. UPPER ABDOMEN: Previous cholecystectomy. Dilatation of the bile duct and pancreatic duct is unchanged . SKELETAL STRUCTURES: No significant osseous abnormality. IMPRESSION: 1. No CT evidence for pulmonary embolism. 2. Negative for pneumonia. 3. 6 mm noncalcified right upper lobe nodule. INCIDENTAL PULMONARY NODULE RECOMMENDATION RECOMMENDATION: Solid Nodule size 6-8 mm -- Single - Low Risk Patient: CT at 6-12 months, then consider CT at 18-24 months - High Risk Patient: CT at 6-12 months, then CT at 18-24 months Note These recommendations do not apply to lung cancer screening, patients with immunosuppression, o r patients with known primary cancer. Note Newly detected indeterminate nodule in persons 35 years of age or older. Persons under the age of 35 should not receive follow-up unless there is a known primary cancer. Note Perifissural Nodule is a fissure-attached/subpleural, homogeneous, solid nodule that has smooth margins and an oval, lentiform, or triangular shape. They represent about 20% of nodules detected in lung cancer screening, are invariably benign, and do not require follow-up. Nodules 10 mm or larger (or those with suspicious features) will continue to be managed based on the size criteria. Low Risk Patient -- minimal or absent history of smoking and of other known risk factors. High Risk Patient -- history of smoking or of other known risk factors. Nodule dimensions are average of long and short axes, rounded to the nearest millimeter. Based on 2017 Fleischner Society Guidelines found in Radiology 2017 284:228-243. https://[email or web address] https://www.ncbi.nlm.nih.gov/pmc/articles/SOI8887529/ Signer Name: Man Hernandez MD Signed: 11/18/2020 4:24 AM Workstation Name: [id number]
[2020-11-18 05:07] VITALS: BP 156/83
--- NOTE | 2020-11-20 08:52 | Electrocardiograph Report ---
[facility] Test Date: 2020-11-18 Test Time: 01:13:59 Pat Name: ENID CAIN Department: Room: Gender: F Electronic Tech: HAYLEY : 1955 Requested By: KARIN MARTINEZ Order Number: [id number] Reading MD: Asa Alvarado Measurements Intervals [place] Rate: 65 P: 61 OK: 204 QRS: 51 QRSD: 82 T: 31 QT: 423 QTc: 441 Interpretive Statements Sinus rhythm Probable left atrial enlargement No previous ECG available for comparison Electronically Signed On 11-20-2020 8:51:54 EDT by Asa Alvarado
== END 2020-11-18 06:00 | disposition home or self-care (01) ==
LOC: ED 22:18
DX: I10 Essential (primary) hypertension (principal); R91.1 Solitary pulmonary nodule; R00.2 Palpitations; Z79.899 Other long term (current) drug therapy
CPT/HCPCS: 36415; 71045; 71275; 80053; 84484; 85025; 85379; 93005; 99284; Q9967

== ENCOUNTER 2020-12-01 09:59 | Emergency (ER) | payer BC ==
[2020-12-01 10:52] VITALS: BP 151/84
--- NOTE | 2020-12-01 14:16 | Emergency Department Report ---
ED ENT HPI - General Chief complaint: Upper Respiratory Infection Stated complaint: SINUS/EAR PAIN Time Seen by Provider: 12/01/20 14:11 Source: patient Mode of arrival: Ambulatory Limitations: No Limitations - History of Present Illness Initial comments: Patient is a 65-year-old female presents emergency room complaints of left-sided ear pain that began a week ago. She states that she also has pain behind her left ear, left neck and left lower jaw. She denies any ear drainage, bleeding, hearing changes, fever, vomiting, diarrhea, cough, shortness of breath, difficulty swallowing, sore throat. Past medical history of hypertension. She denies any medication allergies. - Related Data Home Medications Medication Instructions Recorded Confirmed Last Taken Ventolin HFA 2 puff IH QID PRN 11/27/15 12/25/15 Unknown amLODIPine 5 mg PO DAILY 11/27/15 12/25/15 Unknown Previous Rx's Medication Instructions Recorded Last Taken Type Ciprofloxacin HCl [Ciprofloxacin 500 mg PO Q12H #20 tab 12/25/15 Unknown Rx TAB] Promethazine [Phenergan TAB] 25 mg PO Q6HR PRN #14 tab 12/25/15 Unknown Rx metroNIDAZOLE [Flagyl] 500 mg PO Q8HR #30 tablet 12/25/15 Unknown Rx HYDROcodone/APAP 5-325 [[place] 1 each PO Q6HR PRN #12 tablet 04/02/16 Unknown Rx 5/325] Sulfamethoxazole/Trimethoprim 1 each PO BID #10 tablet 04/17/16 Unknown Rx [Bactrim DS TAB] Tramadol HCl 50 mg PO Q4H PRN #16 04/17/16 Unknown Rx amLODIPine [Norvasc] 5 mg PO DAILY #30 tab 04/17/16 Unknown Rx Famotidine [Pepcid] 20 mg PO DAILY #20 tablet 06/12/17 Unknown Rx Sucralfate [Carafate] 1 gm PO ACHS PRN #200 ml 06/12/17 Unknown Rx traMADoL [Ultram 50 MG tab] 50 mg PO Q6HR PRN #10 tablet 06/12/17 Unknown Rx Cyclobenzaprine [Flexeril] 10 mg PO QHS PRN #20 tablet 06/07/18 Unknown Rx Ibuprofen [Motrin] 800 mg PO Q8HR #40 tablet 06/07/18 Unknown Rx HYDROcodone/APAP 5-325 [[place] 1 - 2 each PO Q6HR PRN #14 tablet 08/21/18 Unknown Rx 5/325] metroNIDAZOLE [Flagyl] 500 mg PO Q8HR #21 tablet 08/21/18 Unknown Rx Dibucaine 1% [Nupercainal] 1 applicatio [place] TID PRN #1 tube 01/03/20 Unknown Rx Hydrocortisone [Anusol-Hc 2.5% TOP 1 applic RC Q8H PRN #1 tube 01/03/20 Unknown Rx CREAM] Naproxen 500 mg PO Q12H PRN #20 tablet 01/03/20 Unknown Rx Hyoscyamine Subl [Levsin Sl 0.125 0.125 mg SL Q6HR PRN #20 tab 02/12/20 Unknown Rx TAB] hydrALAZINE [Apresoline TAB] 10 mg PO Q8H #90 tablet 11/18/20 Unknown Rx Amoxicillin/Potassium Clav 1 each PO BID 10 Days #20 tablet 12/01/20 Unknown Rx [Augmentin 875-125 Tablet] Naproxen 375 mg PO BID PRN #20 tablet 12/01/20 Unknown Rx Allergies Allergy/AdvReac Type Severity Reaction Status Date / Time No Known Allergies Allergy Verified 12/01/20 10:52 ED Dental HPI - General Chief complaint: Upper Respiratory Infection Stated complaint: SINUS/EAR PAIN Time Seen by Provider: 12/01/20 14:11 Source: patient Mode of arrival: Ambulatory Limitations: No Limitations - Related Data Home Medications Medication Instructions Recorded Confirmed Last Taken Ventolin HFA 2 puff IH QID PRN 11/27/15 12/25/15 Unknown amLODIPine 5 mg PO DAILY 11/27/15 12/25/15 Unknown Previous Rx's Medication Instructions Recorded Last Taken Type Ciprofloxacin HCl [Ciprofloxacin 500 mg PO Q12H #20 tab 12/25/15 Unknown Rx TAB] Promethazine [Phenergan TAB] 25 mg PO Q6HR PRN #14 tab 12/25/15 Unknown Rx metroNIDAZOLE [Flagyl] 500 mg PO Q8HR #30 tablet 12/25/15 Unknown Rx HYDROcodone/APAP 5-325 [[place] 1 each PO Q6HR PRN #12 tablet 04/02/16 Unknown Rx 5/325] Sulfamethoxazole/Trimethoprim 1 each PO BID #10 tablet 04/17/16 Unknown Rx [Bactrim DS TAB] Tramadol HCl 50 mg PO Q4H PRN #16 01/26/17 Unknown Rx amLODIPine [Norvasc] 5 mg PO DAILY #30 tab 04/17/16 Unknown Rx Famotidine [Pepcid] 20 mg PO DAILY #20 tablet 06/12/17 Unknown Rx Sucralfate [Carafate] 1 gm PO ACHS PRN #200 ml 06/12/17 Unknown Rx traMADoL [Ultram 50 MG tab] 50 mg PO Q6HR PRN #10 tablet 06/12/17 Unknown Rx Cyclobenzaprine [Flexeril] 10 mg PO QHS PRN #20 tablet 06/07/18 Unknown Rx Ibuprofen [Motrin] 800 mg PO Q8HR #40 tablet 06/07/18 Unknown Rx HYDROcodone/APAP 5-325 [[place] 1 - 2 each PO Q6HR PRN #14 tablet 08/21/18 Unknown Rx 5/325] metroNIDAZOLE [Flagyl] 500 mg PO Q8HR #21 tablet 08/21/18 Unknown Rx Dibucaine 1% [Nupercainal] 1 applicatio [place] TID PRN #1 tube 01/03/20 Unknown Rx Hydrocortisone [Anusol-Hc 2.5% TOP 1 applic RC Q8H PRN #1 tube 01/03/20 Unknown Rx CREAM] Naproxen 500 mg PO Q12H PRN #20 tablet 01/03/20 Unknown Rx Hyoscyamine Subl [Levsin Sl 0.125 0.125 mg SL Q6HR PRN #20 tab 02/12/20 Unknown Rx TAB] hydrALAZINE [Apresoline TAB] 10 mg PO Q8H #90 tablet 11/18/20 Unknown Rx Amoxicillin/Potassium Clav 1 each PO BID 10 Days #20 tablet 12/01/20 Unknown Rx [Augmentin 875-125 Tablet] Naproxen 375 mg PO BID PRN #20 tablet 12/01/20 Unknown Rx Allergies Allergy/AdvReac Type Severity Reaction Status Date / Time No Known Allergies Allergy Verified 12/01/20 10:52 ED Review of Systems ROS: Stated complaint: SINUS/EAR PAIN Other details as noted in HPI Comment: All other systems reviewed and negative ED Past Medical Hx - Past Medical History Hx Hypertension: Yes Additional medical history: Abd pain and cramping - Surgical History Hx Cholecystectomy: Yes Hx Appendectomy: Yes - Social History Smoking Status: Never Smoker Substance Use Type: None - Medications Home Medications: Home Medications Medication Instructions Recorded Confirmed Last Taken Type Ventolin HFA 2 puff IH QID PRN 11/27/15 12/25/15 Unknown History amLODIPine 5 mg PO DAILY 11/27/15 12/25/15 Unknown History Ciprofloxacin HCl [Ciprofloxacin 500 mg PO Q12H #20 tab 12/25/15 Unknown Rx TAB] Promethazine [Phenergan TAB] 25 mg PO Q6HR PRN #14 tab 12/25/15 Unknown Rx metroNIDAZOLE [Flagyl] 500 mg PO Q8HR #30 tablet 12/25/15 Unknown Rx HYDROcodone/APAP 5-325 [[place] 1 each PO Q6HR PRN #12 tablet 04/02/16 Unknown Rx 5/325] Sulfamethoxazole/Trimethoprim 1 each PO BID #10 tablet 04/17/16 Unknown Rx [Bactrim DS TAB] Tramadol HCl 50 mg PO Q4H PRN #16 04/17/16 Unknown Rx amLODIPine [Norvasc] 5 mg PO DAILY #30 tab 04/17/16 Unknown Rx Famotidine [Pepcid] 20 mg PO DAILY #20 tablet 06/12/17 Unknown Rx Sucralfate [Carafate] 1 gm PO ACHS PRN #200 ml 06/12/17 Unknown Rx traMADoL [Ultram 50 MG tab] 50 mg PO Q6HR PRN #10 tablet 06/12/17 Unknown Rx Cyclobenzaprine [Flexeril] 10 mg PO QHS PRN #20 tablet 06/07/18 Unknown Rx Ibuprofen [Motrin] 800 mg PO Q8HR #40 tablet 06/07/18 Unknown Rx HYDROcodone/APAP 5-325 [[place] 1 - 2 each PO Q6HR PRN #14 tablet 08/21/18 Unknown Rx 5/325] metroNIDAZOLE [Flagyl] 500 mg PO Q8HR #21 tablet 08/21/18 Unknown Rx Dibucaine 1% [Nupercainal] 1 applicatio [place] TID PRN #1 tube 01/03/20 Unknown Rx Hydrocortisone [Anusol-Hc 2.5% TOP 1 applic RC Q8H PRN #1 tube 01/03/20 Unknown Rx CREAM] Naproxen 500 mg PO Q12H PRN #20 tablet 01/03/20 Unknown Rx Hyoscyamine Subl [Levsin Sl 0.125 0.125 mg SL Q6HR PRN #20 tab 02/12/20 Unknown Rx TAB] hydrALAZINE [Apresoline TAB] 10 mg PO Q8H #90 tablet 11/18/20 Unknown Rx Amoxicillin/Potassium Clav 1 each PO BID 10 Days #20 tablet 12/01/20 Unknown Rx [Augmentin 875-125 Tablet] Naproxen 375 mg PO BID PRN #20 tablet 12/01/20 Unknown Rx ED Physical Exam - General Limitations: No Limitations General appearance: alert, in no apparent distress - Head Head exam: Present: atraumatic, normocephalic - Eye Eye exam: Present: normal appearance - ENT ENT exam: Present: normal orophraynx, mucous membranes moist, TM's normal bilaterally, normal external ear exam, other (ttp and mild edema to the left parotid gland, no erythema, no increased warmth, no gum edema, uvula is mildine, no uvular edema or deviation, no trismus, no tongue elevation, no muffled voice) - Respiratory Respiratory exam: Present: normal lung sounds bilaterally. Absent: respiratory distress, wheezes, rales, rhonchi, stridor, chest wall tenderness, accessory muscle use, decreased breath sounds, prolonged expiratory - Cardiovascular Cardiovascular Exam: Present: regular rate, normal rhythm, normal heart sounds. Absent: systolic murmur, diastolic murmur, rubs, gallop - Neurological Exam Neurological exam: Present: alert, oriented X3 - Psychiatric Psychiatric exam: Present: normal affect, normal mood - Skin Skin exam: Present: warm, dry, intact ED Course Vital Signs 12/01/20 10:49 Temperature 97.2 F L Pulse Rate 56 L Respiratory 18 Rate Blood Pressure 151/84 [Right] O2 Sat by Pulse 100 Oximetry ED Medical Decision Making - Medical Decision Making Patient is a 65-year-old female presents emergency room complaints of left-sided ear pain that began a week ago. She states that she also has pain behind her left ear, left neck and left lower jaw. She denies any ear drainage, bleeding, hearing changes, fever, vomiting, diarrhea, cough, shortness of breath, difficulty swallowing, sore throat. Past medical history of hypertension. She denies any medication allergies. Vitals are stable. On exam:ttp and mild edema to the left parotid gland, no erythema, no increased warmth, no gum edema, uvula is mildine, no uvular edema or deviation, no trismus, no tongue elevation, no muffled voice. Examination appears most consistent with sialoadenitits. advised pt Please take medications as prescribed. Suck on something sour such as a lemon lozenge. Follow-up with a primary care doctor. Follow-up with a research biologist. Return to emergency room for any new or worsening symptoms. Critical care attestation.: If time is entered above; I have spent that time in minutes in the direct care of this critically ill patient, excluding procedure time. ED Disposition Clinical Impression: Sialadenitis Disposition: HOME / SELF CARE / HOMELESS Is pt being admited?: No Does the pt Need Aspirin: No Condition: Stable Instructions: Salivary Gland Infection Additional Instructions: Please take medications as prescribed. Suck on something sour such as a lemon lozenge. Follow-up with a primary care doctor. Follow-up with a research biologist. Return to emergency room for any new or worsening symptoms. Prescriptions: Amoxicillin/Potassium Clav [Augmentin 875-125 Tablet] 1 each PO BID 10 Days #20 tablet Naproxen 375 mg PO BID PRN #20 tablet PRN Reason: pain Referrals: ESDRAS STINSON MD [Staff Physician] - 3-5 Days BRETT OLVERA MD [Referring] - 3-5 Days your, primary care doctor [Other] - 3-5 Days Forms: Work/School Release Form(ED) Time of Disposition: 14:14 Print Language: BAHRAINI
== END 2020-12-01 14:30 | disposition home or self-care (01) ==
LOC: ED 09:59
DX: K11.20 Sialoadenitis, unspecified (principal); I10 Essential (primary) hypertension; Z90.49 Acquired absence of other specified parts of digestive tract; Z79.899 Other long term (current) drug therapy
CPT/HCPCS: 99281

== ENCOUNTER 2020-12-14 13:38 | Emergency (ER) | payer BC ==
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
[2020-12-14 15:18] VITALS: BP 134/87
== END 2020-12-14 15:18 | disposition home or self-care (01) ==
LOC: ED 13:38
DX: H92.02 Otalgia, left ear (principal); I10 Essential (primary) hypertension; Z98.890 Other specified postprocedural states; V89.2XXA Person injured in unspecified motor-vehicle accident, traffic, initial encounter; W22.10XA Striking against or struck by unspecified automobile airbag, initial encounter; Y93.89 Activity, other specified; Y92.89 Other specified places as the place of occurrence of the external cause; Y99.8 Other external cause status
CPT/HCPCS: 99282